=== PATIENT | male | born 1950 | race Caucasian/White ===

== ENCOUNTER 2020-01-05 10:34 | Observation (INO) | payer OTHER, MEDICARE ==
[2020-01-05] MEDS ORDERED: ALBUTEROL NEBULIZED 2.5 MG/3 ML INHALATION STA (10:55)
[2020-01-05] MEDS ORDERED: methylPREDNISolone SOD SUCCI 125 MG/2 ML VIAL IV STA (10:55)
--- NOTE | 2020-01-05 10:57 | ED ---
General Adult HPI - General Chief complaint: Shortness of Breath Stated complaint: SOB Time Seen by Provider: 01/05/20 10:35 Source: patient, RN notes reviewed, old records reviewed Mode of arrival: ambulatory Limitations: no limitations - History of Present Illness Initial comments: This is a 69-year-old male who presents emergency department with past medical history significant for COPD. Patient states for about a week his breathing is gotten considerably worse he's been taking his inhaler but it has not improved. Patient states she's also developed quite a cough. Patient states he feels warm but has not taken his temperature. Patient denies any chest pain or palpitations currently but he states he has had on and off sharp chest pain part icularly with coughing. Patient denies lightheadedness or dizziness. Patient denies any numbness or weakness. Patient denies any abdominal pain. - Related Data Home Medications Medication Instructions Recorded Confirmed Albuterol Inhaler [Ventolin Hfa 1 puff INHALATION RT-Q4H PRN 01/05/20 01/05/20 Inhaler] Albuterol Nebulized [Ventolin 2.5 mg INHALATION RT-Q4H 01/05/20 01/05/20 Nebulized] Budesonide/Formoterol Fumarate 2 puff INHALATION RT-BID 01/05/20 01/05/20 [Symbicort 160-4.5 Mcg Inhaler] Carboxymethylcellulose Sodium 1 drop BOTH EYES QID PRN 01/05/20 01/05/20 [Refresh Tears] Citalopram Hydrobromide [CeleXA] 40 mg PO DAILY 01/05/20 01/05/20 Fluticasone Nasal [place] [Flonase 1 spr EA NOSTRIL BID 01/05/20 01/05/20 Nasal [place]] Ipratropium Nebulized [Atrovent 0.5 mg INHALATION RT-Q4H 01/05/20 01/05/20 Nebulized 0.2 MG/ML] Levothyroxine Sodium [Synthroid] 125 mcg PO DAILY 01/05/20 01/05/20 Lidocaine 5% Patch [Lidoderm] 1 patch TOPICAL DAILY PRN 01/05/20 01/05/20 Loratadine 10 mg PO DAILY 01/05/20 01/05/20 Omeprazole 20 mg PO DAILY 10/02/20 10/02/20 Sildenafil Citrate 100 mg PO DAILY PRN 01/05/20 01/05/20 Simvastatin [Zocor] 40 mg PO HS 01/05/20 01/05/20 Terazosin HCl 10 mg PO BID 01/05/20 01/05/20 busPIRone HCl [Buspar] 5 mg PO TID 01/05/20 01/05/20 hydroCHLOROthiazide [Hydrodiuril] 25 mg PO DAILY 01/05/20 01/05/20 lisinopriL [Zestril] 5 mg PO DAILY 01/05/20 01/05/20 Allergies Allergy/AdvReac Type Severity Reaction Status Date / Time codeine Allergy Unknown Verified 01/05/20 11:48 Iodinated Contrast Media Allergy Unknown Verified 01/05/20 11:48 Penicillins Allergy Unknown Verified 01/05/20 11:48 Sulfa (Sulfonamide Allergy Unknown Verified 01/05/20 11:48 Antibiotics) tetracycline Allergy Unknown Verified 01/05/20 11:48 Review of Systems ROS Statement: Those systems with pertinent positive or pertinent negative responses have been documented in the HPI. ROS Other: All systems not noted in ROS Statement are negative. Past Medical History Past Medical History: Hypertension, Pneumonia History of Any Multi-Drug Resistant Organisms: None Reported Additional Past Surgical History / Comment(s): sinus surgery Past Psychological History: No Psychological Hx Reported Smoking Status: Former smoker Past Alcohol Use History: None Reported Past Drug Use History: Marijuana General Exam - General Exam Comments Initial Comments: GENERAL: Patient is well-developed and well-nourished. Patient is nontoxic and well- hydrated and is in moderate distress. ENT: Neck is soft and supple. No significant lymphadenopathy is noted. Oropharynx is clear. Moist mucous membranes. Neck has full range of motion without eliciting any pain. EYES: The sclera were anicteric and conjunctiva were pink and moist. Extraocular movements were intact and pupils were equal round and reactive to light. Eyelids were unremarkable. PULMONARY: Patient has diffuse wheezing throughout . Patient is tachypneic CARDIOVASCULAR: There is a regular rate and rhythm without any murmurs gallops or rubs. Femoral pulses are equal bilaterally ABDOMEN: Soft and nontender with normal bowel sounds. No palpable organomegaly was noted. There is no palpable pulsatile mass. SKIN: Skin is clear with no lesions or rashes and otherwise unremarkable. NEUROLOGIC: Patient is alert and oriented x3. Cranial nerves II through XII are grossly intact. Motor and sensory are also intact. Normal speech, volume and content. Symmetrical smile. MUSCULOSKELETAL: Normal extremities with adequate strength and full range of motion. No lower extremity swelling or edema. No calf tenderness. LYMPHATICS: No significant lymphadenopathy is noted PSYCHIATRIC: Normal psychiatric evaluation. Limitations: no limitations Course Vital Signs 01/05/20 01/05/20 01/05/20 10:42 11:28 11:44 Temperature 97.7 F Pulse Rate 88 72 75 Respiratory 18 Rate Blood Pressure 127/83 O2 Sat by Pulse 92 L Oximetry 01/05/20 01/05/20 11:53 12:20 Temperature Pulse Rate 80 68 Respiratory 18 Rate Blood Pressure 137/65 O2 Sat by Pulse 97 Oximetry Medical Decision Making - Medical Decision Making EKG shows normal sinus rhythm at 77 bpm WI interval 164 QRS is 90 QT interval 44 QTC is 457. Patient's EKG shows no ST segment elevation or depression. Chest x-ray shows no acute abnormality. Patient received 3 breathing treatments in the emergency department. Patient also received Solu-Medrol emergency department. I went back into the room to reevaluate the patient he was feeling considerably better he was no longer tachypneic and though he continued to have diffuse after wheezing was much improved and there was better air flow at this time. I spoke with Dr. Johnson he agreed to admit the patient admitted the patient I wrote admitting orders to continue the steroid and albuterol the floor. - Lab Data Result diagrams: 01/05/20 11:13 01/05/20 11:13 Lab Results 01/05/20 01/05/20 01/05/20 Range/Units 11:13 11:13 11:13 WBC 8.6 (3.8-10.6) k/uL RBC 4.51 (4.30-5.90) m/uL Hgb 13.9 (13.0-17.5) gm/dL Hct 42.4 (39.0-53.0) % MCV 93.9 (80.0-100.0) fL MCH 30.8 (25.0-35.0) pg MCHC 32.8 (31.0-37.0) g/dL RDW 12.9 (11.5-15.5) % Plt Count 246 (150-450) k/uL Neutrophils % 61 % Lymphocytes % 23 % Monocytes % 8 % Eosinophils % 5 % Basophils % 1 % Neutrophils # 5.3 (1.3-7.7) k/uL Lymphocytes # 2.0 (1.0-4.8) k/uL Monocytes # 0.7 (0-1.0) k/uL Eosinophils # 0.4 (0-0.7) k/uL Basophils # 0.1 (0-0.2) k/uL PT 9.8 (9.0-12.0) sec INR 0.9 (<1.2) APTT 24.1 (22.0-30.0) sec Sodium 139 (137-145) mmol/L Potassium 4.0 (3.5-5.1) mmol/L Chloride 108 H (98-107) mmol/L Carbon Dioxide 23 (22-30) mmol/L Anion Gap 8 mmol/L BUN 23 H (9-20) mg/dL Creatinine 1.11 (0.66-1.25) mg/dL Est GFR (CKD-EPI)AfAm 79 (>60 ml/min/1.73 sqM) Est GFR (CKD-EPI)NonAf 68 (>60 ml/min/1.73 sqM) Glucose 98 (74-99) mg/dL Plasma Lactic Acid Esequiel (0.7-2.0) mmol/L Calcium 9.2 (8.4-10.2) mg/dL Magnesium 2.1 (1.6-2.3) mg/dL Total Bilirubin 0.7 (0.2-1.3) mg/dL AST 27 (17-59) U/L ALT 14 (4-49) U/L Alkaline Phosphatase 50 (38-126) U/L Troponin I (0.000-0.034) ng/mL Total Protein 7.6 (6.3-8.2) g/dL Albumin 4.3 (3.5-5.0) g/dL 01/05/20 01/05/20 Range/Units 11:13 11:13 WBC (3.8-10.6) k/uL RBC (4.30-5.90) m/uL Hgb (13.0-17.5) gm/dL Hct (39.0-53.0) % MCV (80.0-100.0) fL MCH (25.0-35.0) pg MCHC (31.0-37.0) g/dL RDW (11.5-15.5) % Plt Count (150-450) k/uL Neutrophils % % Lymphocytes % % Monocytes % % Eosinophils % % Basophils % % Neutrophils # (1.3-7.7) k/uL Lymphocytes # (1.0-4.8) k/uL Monocytes # (0-1.0) k/uL Eosinophils # (0-0.7) k/uL Basophils # (0-0.2) k/uL PT (9.0-12.0) sec INR (<1.2) APTT (22.0-30.0) sec Sodium (137-145) mmol/L Potassium (3.5-5.1) mmol/L Chloride (98-107) mmol/L Carbon Dioxide (22-30) mmol/L Anion Gap mmol/L BUN (9-20) mg/dL Creatinine (0.66-1.25) mg/dL Est GFR (CKD-EPI)AfAm (>60 ml/min/1.73 sqM) Est GFR (CKD-EPI)NonAf (>60 ml/min/1.73 sqM) Glucose (74-99) mg/dL Plasma Lactic Acid Esequiel 0.8 (0.7-2.0) mmol/L Calcium (8.4-10.2) mg/dL Magnesium (1.6-2.3) mg/dL Total Bilirubin (0.2-1.3) mg/dL AST (17-59) U/L ALT (4-49) U/L Alkaline Phosphatase (38-126) U/L Troponin I <0.012 (0.000-0.034) ng/mL Total Protein (6.3-8.2) g/dL Albumin (3.5-5.0) g/dL Critical Care Time Critical Care Time: Yes Total Critical Care Time: 35 Disposition Clinical Impression: Acute exacerbation of chronic obstructive pulmonary disease Disposition: ADMITTED IP TO THIS HOSP Referrals: [facility],Clinic [Primary Care Provider] - 1-2 days Time of Disposition: 12:50
[2020-01-05 11:40] LABS: Basophils # (A) 0.1 k/uL (0-0.2); Basophils % (A) 1 %; Eosinophils # (A) 0.4 k/uL (0-0.7); Eosinophils % (A) 5 %; HCT 42.4 % (39.0-53.0); HGB 13.9 gm/dL (13.0-17.5); Lymphocytes % (A) 23 %; MCH 30.8 pg (25.0-35.0); MCHC 32.8 g/dL (31.0-37.0); MCV 93.9 fL (80.0-100.0); Mean Platelet Volume 6.9; Monocytes # (A) 0.7 k/uL (0-1.0); Monocytes % (A) 8 %; Neutrophils # (A) 5.3 k/uL (1.3-7.7); Neutrophils % (A) 61 %; Platelet Count 246 k/uL (150-450); RBC 4.51 m/uL (4.30-5.90); RDW 12.9 % (11.5-15.5); WBC 8.6 k/uL (3.8-10.6)
[2020-01-05 11:52] LABS: Albumin 4.3 g/dL (3.5-5.0); Calcium 9.2 mg/dL (8.4-10.2); INR 0.9 (<1.2); Magnesium 2.1 mg/dL (1.6-2.3); Partial Thromboplastin Time 24.1 sec (22.0-30.0); Prothrombin Time 9.8 sec (9.0-12.0); Total Bilirubin 0.7 mg/dL (0.2-1.3); Total Protein 7.6 g/dL (6.3-8.2)
--- NOTE | 2020-01-05 12:26 | XR ---
EXAMINATION TYPE: XR chest 2V DATE OF EXAM: 01/05/2020 COMPARISON: NONE HISTORY: Difficulty breathing, shortness of breath TECHNIQUE: Frontal and lateral views of the chest are obtained. FINDINGS: There are prominent lung volumes with flattening the hemidiaphragms consistent with air tra pping, COPD. There are overlying cardiac leads. There is no focal air space opacity, pleural effusion , or pneumothorax seen. The cardiac silhouette size is within normal limits. The osseous structure s are intact. IMPRESSION: No acute cardiopulmonary process.
[2020-01-05] MEDS ORDERED: ARTIFICIAL TEARS-HYPROMELLOSE DROPS 15 ML BTL BOTH EYES PRN (15:38)
[2020-01-05] MEDS ORDERED: LIDOCAINE 5% PATCH TOPICAL PRN (15:38)
[2020-01-05] MEDS: busPIRone HCl 5 MG TAB PO SCH ×2 (16:22→20:09)
[2020-01-05] MEDS: HEPARIN SODIUM,PORCINE 5,000 UNIT/ML 1 ML VIAL SQ SCH ×2 (16:22→23:53)
[2020-01-05] MEDS: methylPREDNISolone SOD SUCCI 125 MG/2 ML VIAL IV SCH ×2 (17:42→23:53)
[2020-01-05] MEDS: SYMBICORT 160-4.5 MCG INHALER INHALATION SCH (19:46)
[2020-01-05] MEDS: IPRATROPIUM-ALBUTEROL 3 ML NEB INHALATION PRN (19:46)
[2020-01-05] MEDS: DOXAZOSIN 4 MG TAB PO SCH (20:08)
[2020-01-05] MEDS: FLUTICASONE 50MCG/SPRAY NASAL 16GM EA NOSTRIL SCH (20:16)
[2020-01-05] MEDS ORDERED: ATORVASTATIN 20 MG TAB PO SCH (21:00)
--- NOTE | 2020-01-05 21:38 | P.HPIM ---
History of Present Illness H&P Date: 01/05/20 Chief Complaint: THERESA Patient is a 69-year-old male with a known history of hypertension, hypothyroidism, COPD and previous history of smoking quit several years ago and also marijuana use currently not on any home oxygen and depression came to ER with the complaints of shortness of breath which has been getting worse for the past 1 week. Patient has been using his albuterol nebulized inhaler at home which seems to be not improving and presented to ER. Patient was also complaining of cough with mainly mucus sputum production. Patient also did have subjective fevers. No chills. Denied any complaints of chest pain. Denied any headache or dizziness or lightheadedness. No nausea vomiting or abdominal pain or diarrhea. Lab data showed BUN 23 and creatinine 1.11 Troponin x1- Magnesium 2.1 WBC 8.6 and hemoglobin 13.9 and platelets 246 Chest x-ray showed no acute cardiopulmonary process EKG showed normal sinus rhythm. Review of Systems Constitutional: Patient denies any fever or chills . No generalized weakness or weight loss. Abdomen: Patient denied nausea vomiting and diarrhea and abdominal pain. Cardiovascular: Patient denies any chest pain or short of breath no palpitations. Respiratory: Patient does have cough with mucus production and shortness of breath. Neurologic: Patient denied any numbness or tingling headache. Musculoskeletal: Patient denies any complaints of joint swelling or deformity. Skin: Negative Psychiatric: Negative Endocrine: No heat or cold intolerance. No recent weight gain. Genitourinary: No dysuria or hematuria. All other 14 point ROS negative except the above Past Medical History Past Medical History: COPD, Hypertension, Pneumonia, Thyroid Disorder Additional Past Medical History / Comment(s): hypothyroid History of Any Multi-Drug Resistant Organisms: None Reported Past Surgical History: Hernia Repair Additional Past Surgical History / Comment(s): sinus surgery x3 Past Anesthesia/Blood Transfusion Reactions: No Reported Reaction Past Psychological History: No Psychological Hx Reported Smoking Status: Former smoker Past Alcohol Use History: None Reported Past Drug Use History: Marijuana Medications and Allergies Home Medications Medication Instructions Recorded Confirmed Type Albuterol Inhaler [Ventolin Hfa 1 puff INHALATION RT-Q4H PRN 01/05/20 01/05/20 History Inhaler] Albuterol Nebulized [Ventolin 2.5 mg INHALATION RT-Q4H 01/05/20 01/05/20 History Nebulized] Budesonide/Formoterol Fumarate 2 puff INHALATION RT-BID 01/05/20 01/05/20 History [Symbicort 160-4.5 Mcg Inhaler] Carboxymethylcellulose Sodium 1 drop BOTH EYES QID PRN 01/05/20 01/05/20 History [Refresh Tears] Citalopram Hydrobromide [CeleXA] 40 mg PO DAILY 01/05/20 01/05/20 History Fluticasone Nasal [place] [Flonase 1 spr EA NOSTRIL BID 01/05/20 01/05/20 History Nasal [place]] Ipratropium Nebulized [Atrovent 0.5 mg INHALATION RT-Q4H 01/05/20 01/05/20 History Nebulized 0.2 MG/ML] Levothyroxine Sodium [Synthroid] 125 mcg PO DAILY 01/05/20 01/05/20 History Lidocaine 5% Patch [Lidoderm] 1 patch TOPICAL DAILY PRN 01/05/20 01/05/20 History Loratadine 10 mg PO DAILY 01/05/20 01/05/20 History Omeprazole 20 mg PO DAILY 01/05/20 01/05/20 History Sildenafil Citrate 100 mg PO DAILY PRN 01/05/20 01/05/20 History Simvastatin [Zocor] 40 mg PO HS 01/05/20 01/05/20 History Terazosin HCl 10 mg PO BID 01/05/20 01/05/20 History busPIRone HCl [Buspar] 5 mg PO TID 01/05/20 01/05/20 History hydroCHLOROthiazide [Hydrodiuril] 25 mg PO DAILY 01/05/20 01/05/20 History lisinopriL [Zestril] 5 mg PO DAILY 01/05/20 01/05/20 History Allergies Allergy/AdvReac Type Severity Reaction Status Date / Time codeine Allergy Unknown Verified 01/05/20 11:48 Iodinated Contrast Media Allergy Unknown Verified 01/05/20 11:48 Penicillins Allergy Unknown Verified 01/05/20 11:48 Sulfa (Sulfonamide Allergy Unknown Verified 01/05/20 11:48 Antibiotics) tetracycline Allergy Unknown Verified 01/05/20 11:48 Physical Exam Vitals: Vital Signs Temp Pulse Pulse Resp BP BP Pulse Ox 01/05/20 15:00 98.0 F 64 16 140/84 94 L 01/05/20 14:40 75 16 139/75 98 01/05/20 14:24 98.0 F 64 16 140/84 94 L 01/05/20 13:08 66 18 130/80 98 01/05/20 12:20 68 18 137/65 97 01/05/20 11:53 80 01/05/20 11:44 75 01/05/20 11:28 72 01/05/20 10:42 97.7 F 88 18 127/83 92 L Intake and Output 01/05/20 01/05/20 01/05/20 06:59 14:59 22:59 Other: Weight 83.915 kg PHYSICAL EXAMINATION: Patient is lying in the bed comfortably, no acute distress, awake alert and oriented.. HEENT: Normocephalic. Neck is supple. Pupils reactive. Nostrils clear. Oral cavity is moist. Ears reveal no drainage. Neck reveals no JVD, carotid bruits, or thyromegaly. CHEST EXAMINATION: Trachea is central. Symmetrical expansion. Bilateral diffuse wheezing and diminished air entry. Nonlabored breathing. CARDIAC: Normal S1, S2 with no gallops. No murmurs ABDOMEN: Soft. Bowel sounds normal. No organomegaly. No abdominal bruits. Extremities: reveal no edema. No clubbing or cyanosis Neurologically awake, alert, oriented x3 with well-coordinated movements. No focal deficits noted Skin: No rash or skin lesions. Psychiatric: Coperative. Nonsuicidal Musculoskeletal: No joint swelling or deformity. Normal range of motion. Results CBC & Chem 7: 01/05/20 11:13 01/05/20 11:13 Labs: Abnormal Lab Results - Last 24 Hours (Table) 01/05/20 Range/Units 11:13 Chloride 108 H (98-107) mmol/L BUN 23 H (9-20) mg/dL Thrombosis Risk Factor Assmnt - DVT/VTE Prophylaxis DVT/VTE Prophylaxis: Pharmacologic Prophylaxis ordered - Choose All That Apply Each Risk Factor Represents 2 Points: Age 61-74 years Thrombosis Risk Factor Assessment Total Risk Factor Score: 2 Thrombosis Risk Factor Assessment Level: Low Risk Assessment and Plan Assessment: Acute COPD exacerbation Previous history of smoking Hypertension Hypothyroidism Depression Hyperlipidemia History of marijuana use DVT prophylaxis with heparin subcu GI prophylaxis Plan: Patient will be continued on methylprednisolone 60 mg every 6 hourly and duo nebs and also continue with Symbicort. Continue with home medications and follow-up closely. Oxygen therapy as needed and further recommendations based on clinical course. Continue with GI and DVT prophylaxis.
[2020-01-06 03:39] VITALS: RESP 16
[2020-01-06] MEDS: methylPREDNISolone SOD SUCCI 125 MG/2 ML VIAL IV SCH ×2 (05:55→11:57)
[2020-01-06] MEDS ORDERED: LEVOTHYROXINE 125 MCG TAB PO SCH (06:30)
[2020-01-06 07:20] VITALS: BP 128/78; TEMP 97.6
[2020-01-06] MEDS ORDERED: PANTOPRAZOLE 40 MG TABLET PO SCH (07:30)
[2020-01-06] MEDS: HEPARIN SODIUM,PORCINE 5,000 UNIT/ML 1 ML VIAL SQ SCH (07:32)
[2020-01-06] MEDS: FLUTICASONE 50MCG/SPRAY NASAL 16GM EA NOSTRIL SCH (07:32)
[2020-01-06] MEDS: busPIRone HCl 5 MG TAB PO SCH (07:33)
[2020-01-06] MEDS: DOXAZOSIN 4 MG TAB PO SCH (07:33)
[2020-01-06] MEDS: SYMBICORT 160-4.5 MCG INHALER INHALATION SCH (07:57)
[2020-01-06] MEDS: IPRATROPIUM-ALBUTEROL 3 ML NEB INHALATION PRN ×2 (07:57→12:03)
[2020-01-06 08:00] VITALS: BMI 25.0
[2020-01-06] MEDS ORDERED: CITALOPRAM HYDROBROMIDE 20 MG TAB PO SCH (09:00)
[2020-01-06] MEDS ORDERED: hydroCHLOROthiazide 25 MG TAB PO SCH (09:00)
[2020-01-06] MEDS ORDERED: LORATADINE 10 MG TAB PO SCH (09:00)
[2020-01-06] MEDS ORDERED: lisinopriL 5 MG TAB PO SCH (09:00)
[2020-01-06] MEDS ORDERED: AZITHROMYCIN 500 MG TAB PO SCH (11:45)
[2020-01-06] MEDS ORDERED: SODIUM CHLORIDE 0.9% 1,000 ML IV SCH (11:45)
[2020-01-06 12:16] VITALS: PULSE 64
[2020-01-06] MEDS ORDERED: predniSONE 50 MG TAB PO SCH (14:15)
== END 2020-01-06 15:47 | disposition home or self-care (01) ==
LOC: EC 10:34 → 1SOBS 12:51
PROVIDERS: ADMIT Internal Medicine; ATTEND Internal Medicine
DX: J44.1 Chronic obstructive pulmonary disease with (acute) exacerbation (principal); I10 Essential (primary) hypertension; R06.82 Tachypnea, not elsewhere classified; E03.9 Hypothyroidism, unspecified; F32.9 Major depressive disorder, single episode, unspecified; E78.5 Hyperlipidemia, unspecified; Z87.01 Personal history of pneumonia (recurrent); Z87.891 Personal history of nicotine dependence; Z79.899 Other long term (current) drug therapy; Z79.51 Long term (current) use of inhaled steroids; Z79.890 Hormone replacement therapy; Z88.5 Allergy status to narcotic agent; Z88.0 Allergy status to penicillin; Z88.2 Allergy status to sulfonamides; Z88.1 Allergy status to other antibiotic agents; Z91.041 Radiographic dye allergy status
CPT/HCPCS: 96372 ×2; 96376 ×2; 96374; 99291; 36415; 94640 ×4; 94644; 93005; 80053; 83605; 83735; 84484; 85025; 85610; 85730; 87040; 71046; G0378 ×2; J1644 ×2; J2930 ×2; J0696

== ENCOUNTER 2020-11-19 20:31 | Inpatient (IN) | payer OTHER, MEDICARE ==
[2020-11-19] MEDS ORDERED: IPRATROPIUM 0.5 MG/2.5 ML NEBU INHALATION STA (21:20)
[2020-11-19] MEDS ORDERED: ALBUTEROL NEBULIZED 2.5 MG/3 ML INHALATION STA (21:20)
[2020-11-19] MEDS ORDERED: methylPREDNISolone SOD SUCCI 125 MG/2 ML VIAL IV STA (21:20)
--- NOTE | 2020-11-19 21:21 | XR ---
EXAMINATION TYPE: XR chest 2V DATE OF EXAM: 11/19/2020 COMPARISON: January 05, 2020 HISTORY: Difficulty breathing TECHNIQUE: 2 views FINDINGS: There is no heart failure nor confluent pneumonic infiltrate. Costophrenic angles are clear . There are chest leads. Bony thorax is intact. Is pulmonary hyperinflation. IMPRESSION: No active cardiopulmonary disease. COPD. No change.
[2020-11-19 22:37] LABS: Basophils # (A) 0.1 k/uL (0-0.2); Basophils % (A) 1 %; Eosinophils # (A) 0.5 k/uL (0-0.7); Eosinophils % (A) 5 %; HGB 15.7 gm/dL (13.0-17.5); Lymphocytes # (A) 1.8 k/uL (1.0-4.8); Lymphocytes % (A) 21 %; MCH 34.1 pg (25.0-35.0); MCHC 34.9 g/dL (31.0-37.0); MCV 97.7 fL (80.0-100.0); Mean Platelet Volume 6.9; Monocytes # (A) 0.7 k/uL (0-1.0); Monocytes % (A) 8 %; Neutrophils # (A) 5.4 k/uL (1.3-7.7); Neutrophils % (A) 62 %; Platelet Count 256 k/uL (150-450); RDW 13.5 % (11.5-15.5); WBC 8.8 k/uL (3.8-10.6)
[2020-11-19 22:40] LABS: ALT 19 U/L (4-49); AST 34 U/L (17-59); African American GFR (CKD) >90 (>60 ml/min/1.73 sqM); Albumin 4.7 g/dL (3.5-5.0); Alkaline Phosphatase 55 U/L (38-126); Anion Gap 12 mmol/L; Blood Urea Nitrogen 28 mg/dL (9-20); Calcium 9.7 mg/dL (8.4-10.2); Carbon Dioxide 22 mmol/L (22-30); Chloride 103 mmol/L (98-107); Glucose 98 mg/dL (74-99); Magnesium 2.3 mg/dL (1.6-2.3); Non-African American GFR(CKD) 80 (>60 ml/min/1.73 sqM); Potassium 4.3 mmol/L (3.5-5.1); Sodium 137 mmol/L (137-145); Total Bilirubin 0.5 mg/dL (0.2-1.3); Total Protein 8.1 g/dL (6.3-8.2)
[2020-11-19 22:46] LABS: INR 0.9 (<1.2); Partial Thromboplastin Time 23.5 sec (22.0-30.0)
--- NOTE | 2020-11-19 23:52 | ED ---
SOB HPI - General Source: patient Mode of arrival: wheelchair Limitations: physical limitation <Vanessa Conroy - Last Filed: 11/20/20 00:57> <Lakhwinder Mcgee - Last Filed: 11/24/20 16:33> - General Chief Complaint: Shortness of Breath Stated Complaint: SOB, COPD Time Seen by Provider: 11/19/20 20:58 - History of Present Illness Initial Comments: 70 year-old male patient with past history of COPD presents for evaluation of shortness of breath and increased wheezing. States symptoms have been worsening over the last week. Reports clear to yellow sputum production. States he felt feverish but never checked his temperature. Denies any chest pain, nausea, vomiting, or sweats. Denies leg swelling or pain. States he quite smoking in 1984. Did do breathing treatments and used his inhaler at home without relief. States twice today he felt like he was going to pass out from shortness of breath. Patient denies any recent rash, abdominal pain, diarrhea, constipation, back pain, numbness, tingling, dizziness, weakness, hematuria, dysuria, urinary urgency, urinary frequency, headache, visual changes, or any other complaints. (Vanessa Conroy) - Related Data Home Medications Medication Instructions Recorded Confirmed Albuterol Inhaler [Ventolin Hfa 1 puff INHALATION RT-Q4H PRN 01/05/20 11/19/20 Inhaler] Budesonide/Formoterol Fumarate 2 puff INHALATION RT-BID 01/05/20 11/19/20 [Symbicort 160-4.5 Mcg Inhaler] Carboxymethylcellulose Sodium 1 drop BOTH EYES QID PRN 01/05/20 11/19/20 [Refresh Tears] Citalopram Hydrobromide [CeleXA] 40 mg PO DAILY 01/05/20 11/19/20 Fluticasone Nasal [place] [Flonase 1 spr EA NOSTRIL BID 01/05/20 11/19/20 Nasal [place]] Levothyroxine Sodium [Synthroid] 125 mcg PO DAILY 01/05/20 11/19/20 Loratadine 10 mg PO DAILY 01/05/20 11/19/20 Omeprazole 20 mg PO DAILY 01/05/20 11/19/20 Simvastatin [Zocor] 40 mg PO HS 01/05/20 11/19/20 Terazosin HCl 10 mg PO BID 01/05/20 11/19/20 busPIRone HCl [Buspar] 5 mg PO TID 01/05/20 11/19/20 hydroCHLOROthiazide [Hydrodiuril] 25 mg PO DAILY 01/05/20 11/19/20 lisinopriL [Zestril] 5 mg PO DAILY 01/05/20 11/19/20 Terbinafine 1% Cream [LamISIL] 1 applic TOPICAL BID PRN 11/19/20 11/19/20 Previous Rx's Medication Instructions Recorded Cefuroxime Axetil [Ceftin] 500 mg PO BID 5 Days #10 tab 11/22/20 Ipratropium-Albuterol Nebulize 3 ml INHALATION RT-Q4H PRN ml 11/22/20 [Duoneb 0.5 mg-3 mg/3 ml Soln] Ipratropium-Albuterol Nebulize 3 ml INHALATION RT-QID 30 Days 11/22/20 [Duoneb 0.5 mg-3 mg/3 ml Soln] #120 ml predniSONE 10 mg PO DIRECTED #30 tab 11/22/20 Allergies Allergy/AdvReac Type Severity Reaction Status Date / Time codeine Allergy Unknown Verified 11/19/20 22:18 Iodinated Contrast Media Allergy Unknown Verified 11/19/20 22:18 Penicillins Allergy Unknown Verified 11/19/20 22:18 Sulfa (Sulfonamide Allergy Unknown Verified 11/19/20 22:18 Antibiotics) tetracycline Allergy Unknown Verified 11/19/20 22:18 Review of Systems ROS Other: All systems not noted in ROS Statement are negative. <Vanessa Conroy - Last Filed: 11/20/20 00:57> ROS Other: All systems not noted in ROS Statement are negative. <Lakhwinder Mcgee - Last Filed: 11/24/20 16:33> ROS Statement: Those systems with pertinent positive or pertinent negative responses have been documented in the HPI. Past Medical History Past Medical History: COPD, Hypertension, Pneumonia, Thyroid Disorder Additional Past Medical History / Comment(s): hypothyroid History of Any Multi-Drug Resistant Organisms: None Reported Past Surgical History: Hernia Repair Additional Past Surgical History / Comment(s): sinus surgery x3 Past Anesthesia/Blood Transfusion Reactions: No Reported Reaction Past Psychological History: No Psychological Hx Reported Smoking Status: Former smoker Past Alcohol Use History: None Reported Past Drug Use History: Marijuana <Vanessa Conroy M - Last Filed: 11/20/20 00:57> General Exam Limitations: physical limitation General appearance: alert, in no apparent distress, other (Physical well- developed, well-nourished elderly male patient in no acute distress. Vital s igns upon presentation temperature 98.1F, pulse 98, respirations 26, blood pressure 123/81, pulse ox 92% on room air.) ENT exam: Present: normal exam, normal oropharynx, mucous membranes moist Respiratory exam: Present: wheezes (Course x-ray wheezing noted in the posterior lung hou), other (Pursed lip breathing). Absent: respiratory distress, rales, rhonchi, stridor, accessory muscle use Cardiovascular Exam: Present: regular rate, normal rhythm, normal heart sounds. Absent: systolic murmur, diastolic murmur, rubs, gallop, clicks GI/Abdominal exam: Present: soft, normal bowel sounds. Absent: distended, tenderness, guarding, rebound, rigid Neurological exam: Present: alert, oriented X3, CN II-XII intact Psychiatric exam: Present: normal affect, normal mood Skin exam: Present: warm, dry, intact, normal color. Absent: rash <Vanessa Conroy M - Last Filed: 11/20/20 00:57> Course Vital Signs 11/19/20 11/19/20 11/19/20 20:34 21:00 21:06 Temperature 98.1 F Pulse Rate 98 87 Respiratory 26 H 26 H 22 Rate Blood Pressure 123/81 117/81 O2 Sat by Pulse 92 L 94 L Oximetry 11/19/20 11/19/20 11/19/20 22:18 23:02 23:30 Temperature Pulse Rate 77 78 84 Respiratory 20 Rate Blood Pressure 119/74 O2 Sat by Pulse 94 L Oximetry 11/20/20 02:29 Temperature Pulse Rate 73 Respiratory 20 Rate Blood Pressure O2 Sat by Pulse 93 L Oximetry Medical Decision Making - Lab Data Result diagrams: 11/19/20 21:53 11/19/20 21:53 - EKG Data -: EKG Interpreted by Ma - Radiology Data Radiology results: report reviewed, image reviewed <Vanessa Conroy Mirela - Last Filed: 11/20/20 00:57> - Lab Data Result diagrams: 11/22/20 06:05 11/22/20 06:05 <Lakhwinder Mcgee - Last Filed: 11/24/20 16:33> - Medical Decision Making 70-year-old male patient presents the emergency department today for dilation of increased shortness of breath over the last week. Physical examination did reveal coarse expiratory wheezing in the posterior lung hou. Oxygen saturation are 92% on arrival. Patient was given 7.5 mg albuterol breathing treatment with IV steroids. Upon reevaluation and does have oxygen in place at satting between 89 and 90%. He'll be admitted to the hospital for continued steroids and breathing treatment. We will add pulmonology for consultation. He is agreeable to this plan. Case discussed my attending Dr. Mcgee. (Vanessa Conroy) I saw this patient in conjunction with the physician bankruptcy assistant. I performed independent history and physical exam. Agree with case management. (Lakhwinder Mcgee) - Lab Data Lab Results 11/19/20 11/19/20 11/19/20 Range/Units 21:53 21:53 21:53 WBC 8.8 (3.8-10.6) k/uL RBC 4.60 (4.30-5.90) m/uL Hgb 15.7 (13.0-17.5) gm/dL Hct 45.0 (39.0-53.0) % MCV 97.7 (80.0-100.0) fL MCH 34.1 (25.0-35.0) pg MCHC 34.9 (31.0-37.0) g/dL RDW 13.5 (11.5-15.5) % Plt Count 256 (150-450) k/uL MPV 6.9 Immature Gran % (Auto) % Absolute Nucleated RBC (0.00-0.00) X 10*3/uL Neutrophils % 62 % Lymphocytes % 21 % Monocytes % 8 % Eosinophils % 5 % Basophils % 1 % Immature Gran # (0.00-0.04) X 10*3/uL Neutrophils # 5.4 (1.3-7.7) k/uL Lymphocytes # 1.8 (1.0-4.8) k/uL Monocytes # 0.7 (0-1.0) k/uL Eosinophils # 0.5 (0-0.7) k/uL Basophils # 0.1 (0-0.2) k/uL NRBC/100 WBC Diff (0.0-0.0) /100 WBCS PT 10.0 (9.0-12.0) sec INR 0.9 (<1.2) APTT 23.5 (22.0-30.0) sec Sodium 137 (137-145) mmol/L Potassium 4.3 (3.5-5.1) mmol/L Chloride 103 (98-107) mmol/L Carbon Dioxide 22 (22-30) mmol/L Anion Gap 12 mmol/L BUN 28 H (9-20) mg/dL Creatinine 0.97 (0.66-1.25) mg/dL Est GFR (CKD-EPI)AfAm >90 (>60 ml/min/1.73 sqM) Est GFR (CKD-EPI)NonAf 80 (>60 ml/min/1.73 sqM) BUN/Creatinine Ratio (12.00-20.00) Ratio Glucose 98 (74-99) mg/dL Plasma Lactic Acid Esequiel (0.7-2.0) mmol/L Calcium 9.7 (8.4-10.2) mg/dL Magnesium 2.3 (1.6-2.3) mg/dL Total Bilirubin 0.5 (0.2-1.3) mg/dL AST 34 (17-59) U/L ALT 19 (4-49) U/L Alkaline Phosphatase 55 (38-126) U/L Troponin I (0.000-0.034) ng/mL Total Protein 8.1 (6.3-8.2) g/dL Albumin 4.7 (3.5-5.0) g/dL Coronavirus (PCR) (Not Detectd) 11/19/20 11/19/20 11/20/20 Range/Units 21:53 21:53 18:12 WBC (3.8-10.6) k/uL RBC (4.30-5.90) m/uL Hgb (13.0-17.5) gm/dL Hct (39.0-53.0) % MCV (80.0-100.0) fL MCH (25.0-35.0) pg MCHC (31.0-37.0) g/dL RDW (11.5-15.5) % Plt Count (150-450) k/uL MPV Immature Gran % (Auto) % Absolute Nucleated RBC (0.00-0.00) X 10*3/uL Neutrophils % % Lymphocytes % % Monocytes % % Eosinophils % % Basophils % % Immature Gran # (0.00-0.04) X 10*3/uL Neutrophils # (1.3-7.7) k/uL Lymphocytes # (1.0-4.8) k/uL Monocytes # (0-1.0) k/uL Eosinophils # (0-0.7) k/uL Basophils # (0-0.2) k/uL NRBC/100 WBC Diff (0.0-0.0) /100 WBCS PT (9.0-12.0) sec INR (<1.2) APTT (22.0-30.0) sec Sodium (137-145) mmol/L Potassium (3.5-5.1) mmol/L Chloride (98-107) mmol/L Carbon Dioxide (22-30) mmol/L Anion Gap mmol/L BUN (9-20) mg/dL Creatinine (0.66-1.25) mg/dL Est GFR (CKD-EPI)AfAm (>60 ml/min/1.73 sqM) Est GFR (CKD-EPI)NonAf (>60 ml/min/1.73 sqM) BUN/Creatinine Ratio (12.00-20.00) Ratio Glucose (74-99) mg/dL Plasma Lactic Acid Esequiel 1.1 (0.7-2.0) mmol/L Calcium (8.4-10.2) mg/dL Magnesium (1.6-2.3) mg/dL Total Bilirubin (0.2-1.3) mg/dL AST (17-59) U/L ALT (4-49) U/L Alkaline Phosphatase (38-126) U/L Troponin I <0.012 (0.000-0.034) ng/mL Total Protein (6.3-8.2) g/dL Albumin (3.5-5.0) g/dL Coronavirus (PCR) Not Detected (Not Detectd) 11/21/20 11/21/20 Range/Units 05:44 05:44 WBC 14.29 H (3.8-10.6) k/uL RBC 3.92 L (4.30-5.90) m/uL Hgb 12.6 L (13.0-17.5) gm/dL Hct 37.2 L (39.0-53.0) % MCV 94.9 (80.0-100.0) fL MCH 32.1 H (25.0-35.0) pg MCHC 33.9 (31.0-37.0) g/dL RDW 12.6 (11.5-15.5) % Plt Count 231 (150-450) k/uL MPV 9.0 L Immature Gran % (Auto) 1.0 % Absolute Nucleated RBC 0 (0.00-0.00) X 10*3/uL Neutrophils % 87.1 % Lymphocytes % 8.0 % Monocytes % 3.7 % Eosinophils % 0.1 % Basophils % 0.1 % Immature Gran # 0.15 H (0.00-0.04) X 10*3/uL Neutrophils # 12.43 H (1.3-7.7) k/uL Lymphocytes # 1.15 (1.0-4.8) k/uL Monocytes # 0.53 (0-1.0) k/uL Eosinophils # 0.01 L (0-0.7) k/uL Basophils # 0.02 (0-0.2) k/uL NRBC/100 WBC Diff 0 (0.0-0.0) /100 WBCS PT (9.0-12.0) sec INR (<1.2) APTT (22.0-30.0) sec Sodium 137 (137-145) mmol/L Potassium 4.0 (3.5-5.1) mmol/L Chloride 101 (98-107) mmol/L Carbon Dioxide 25.6 (22-30) mmol/L Anion Gap 10.40 mmol/L BUN 31.0 H (9-20) mg/dL Creatinine 1.1 (0.66-1.25) mg/dL Est GFR (CKD-EPI)AfAm 79.0 (>60 ml/min/1.73 sqM) Est GFR (CKD-EPI)NonAf 68.1 (>60 ml/min/1.73 sqM) BUN/Creatinine Ratio 28.18 H (12.00-20.00) Ratio Glucose 136 H (74-99) mg/dL Plasma Lactic Acid Esequiel (0.7-2.0) mmol/L Calcium 9.3 (8.4-10.2) mg/dL Magnesium (1.6-2.3) mg/dL Total Bilirubin (0.2-1.3) mg/dL AST (17-59) U/L ALT (4-49) U/L Alkaline Phosphatase (38-126) U/L Troponin I (0.000-0.034) ng/mL Total Protein (6.3-8.2) g/dL Albumin (3.5-5.0) g/dL Coronavirus (PCR) (Not Detectd) - EKG Data EKG Comments: EKG obtained at 2205 shows normal sinus rhythm with a ventricular 76, NV interval 164, QRS duration 90, QT 406, QTc 456. No evidence of ST elevation or depression. (Vanessa Conroy) - Radiology Data Two-view x-ray of the chest is obtained. Report was reviewed in its entirety. Impression by Dr. Quesada shows no active cardiopulmonary disease. COPD. No change. (Vanessa Conroy) Disposition Decision to Admit Reason: Admit from EC Decision Date: 11/20/20 Decision Time: 00:34 <Vanessa Conroy - Last Filed: 11/20/20 00:57> <Lakhwinder Mcgee - Last Filed: 11/24/20 16:33> Clinical Impression: COPD exacerbation, Hypoxia Disposition: ADMITTED IP TO THIS HOSP Condition: Good
[2020-11-19] MEDS ORDERED: IPRATROPIUM-ALBUTEROL 3 ML NEB INHALATION PRN (23:57)
[2020-11-20] MEDS: methylPREDNISolone SOD SUCCI 125 MG/2 ML VIAL IV SCH ×5 (02:32→23:44)
[2020-11-20] MEDS: IPRATROPIUM-ALBUTEROL 3 ML NEB INHALATION SCH ×4 (07:42→20:04)
--- NOTE | 2020-11-20 12:16 | P.CNPUL ---
History of Present Illness Consult date: 11/20/20 Requesting physician: Joe Larios Reason for consult: dyspnea, COPD Chief complaint: COPD exacerbation History of present illness: This is a very pleasant 70-year-old male patient who follows with the [facility] for his primary care needs. He has a history of hypertension, hypothyroidism, hyperlipidemia, depression. He also has history of chronic obstructive pulmonary disease and is maintained on Symbicort, albuterol HFA, DuoNeb inhalations. No home oxygen. 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 He presented here to the emergency room with complaints of increasing shortness of breath, chest tightness and wheezing over the previous week. Some yellow productive sputum. Some near syncope due to shortness of breath. Chest x-ray did reveal evidence of COPD but no acute pulmonary process. White count 8.8. Hemoglobin 15.7. Sodium 137. Potassium 4.3. Creatinine 0.97. Glucose 98. Troponin negative 1. He's been initiated on IV Solu-Medrol and DuoNeb inhalations. He is seen today in consultation on the regular medical floor. He is currently sitting up in a chair at the bedside and alert in no acute distress. Maintaining good O2 saturations in the 90s on 2 L/m per nasal cannula. Healing a bit better today compared to yesterday. Review of Systems REVIEW OF SYSTEMS: CONSTITUTIONAL: Denies any recent significant weight loss or weight gain. EYES: Denies change in vision. EARS, NOSE, MOUTH, THROAT: Denies headaches, denies sore throat. CARDIOVASCULAR: Denies chest pain, palpitations or syncopal episodes. RESPIRATORY: Positive for shortness of breath, cough, congestion no hemoptysis. GASTROINTESTINAL: Denies change in appetite, denies abdominal pain GENITOURINARY: Denies hematuria, denies infections. MUSKULOSKELETAL: Denies pain, denies swelling. INTEGUMENTARY: Denies rash, denies eczema. NEUROLOGICAL: Denies recent memory loss, no recent seizure activity. PSYCHIATRIC: Denies anxiety, denies depression. HEMATOLOGIC/LYMPHATIC: Denies anemia, denies enlarged lymph nodes. Past Medical History Past Medical History: COPD, Hypertension, Pneumonia, Thyroid Disorder Additional Past Medical History / Comment(s): hypothyroid History of Any Multi-Drug Resistant Organisms: None Reported Past Surgical History: Hernia Repair Additional Past Surgical History / Comment(s): sinus surgery x3 Past Anesthesia/Blood Transfusion Reactions: No Reported Reaction Past Psychological History: No Psychological Hx Reported Smoking Status: Former smoker Past Alcohol Use History: None Reported Past Drug Use History: Marijuana Medications and Allergies Home Medications Medication Instructions Recorded Confirmed Type Albuterol Inhaler [Ventolin Hfa 1 puff INHALATION RT-Q4H PRN 01/05/20 11/19/20 History Inhaler] Albuterol Nebulized [Ventolin 2.5 mg INHALATION RT-Q4H 01/05/20 11/19/20 History Nebulized] Budesonide/Formoterol Fumarate 2 puff INHALATION RT-BID 01/05/20 11/19/20 History [Symbicort 160-4.5 Mcg Inhaler] Carboxymethylcellulose Sodium 1 drop BOTH EYES QID PRN 01/05/20 11/19/20 History [Refresh Tears] Citalopram Hydrobromide [CeleXA] 40 mg PO DAILY 01/05/20 11/19/20 History Fluticasone Nasal [place] [Flonase 1 spr EA NOSTRIL BID 01/05/20 11/19/20 History Nasal [place]] Ipratropium Nebulized [Atrovent 0.5 mg INHALATION RT-Q4H 01/05/20 11/19/20 History Nebulized 0.2 MG/ML] Levothyroxine Sodium [Synthroid] 125 mcg PO DAILY 01/05/20 11/19/20 History Loratadine 10 mg PO DAILY 01/05/20 11/19/20 History Omeprazole 20 mg PO DAILY 01/05/20 11/19/20 History Simvastatin [Zocor] 40 mg PO HS 01/05/20 11/19/20 History Terazosin HCl 10 mg PO BID 01/05/20 11/19/20 History busPIRone HCl [Buspar] 5 mg PO TID 01/05/20 11/19/20 History hydroCHLOROthiazide [Hydrodiuril] 25 mg PO DAILY 01/05/20 11/19/20 History lisinopriL [Zestril] 5 mg PO DAILY 01/05/20 11/19/20 History Terbinafine 1% Cream [LamISIL] 1 applic TOPICAL BID PRN 11/19/20 11/19/20 History Allergies Allergy/AdvReac Type Severity Reaction Status Date / Time codeine Allergy Unknown Verified 11/19/20 22:18 Iodinated Contrast Media Allergy Unknown Verified 11/19/20 22:18 Penicillins Allergy Unknown Verified 11/19/20 22:18 Sulfa (Sulfonamide Allergy Unknown Verified 11/19/20 22:18 Antibiotics) tetracycline Allergy Unknown Verified 11/19/20 22:18 Physical Exam Vitals: Vital Signs Temp Pulse Pulse Resp BP BP Pulse Ox 11/20/20 11:41 88 11/20/20 11:30 88 11/20/20 08:00 94 18 11/20/20 07:54 80 11/20/20 07:42 76 11/20/20 07:00 97.8 F 94 18 117/69 96 11/20/20 03:49 97.9 F 77 16 133/80 90 L 11/20/20 02:29 73 20 93 L 11/19/20 23:30 84 20 119/74 94 L 11/19/20 23:02 78 11/19/20 22:18 77 11/19/20 21:06 87 22 117/81 94 L 11/19/20 21:00 26 H 11/19/20 20:34 98.1 F 98 26 H 123/81 92 L Intake and Output 11/19/20 11/20/20 11/20/20 22:59 06:59 14:59 Output Total 300 Balance -300 Output: Urine 300 Other: Voiding Method Toilet # Voids 1 Weight 90.718 kg 90.718 kg GENERAL EXAM: Alert, very pleasant 70-year-old gentleman, on 2 L nasal cannula, comfortable in no apparent distress. HEAD: Normocephalic. EYES: Normal reaction of pupils, equal size. NOSE: Clear with pink turbinates. THROAT: No erythema or exudates. NECK: No masses, no JVD. CHEST: No chest wall deformity. LUNGS: Equal air entry with bilateral end expiratory wheeze, diminished. CVS: S1 and S2 normal with no audible murmur, regular rhythm. ABDOMEN: No hepatosplenomegaly, normal bowel sounds, no guarding or rigidity. SPINE: No scoliosis or deformity SKIN: No rashes CENTRAL NERVOUS SYSTEM: No focal deficits, tone is normal in all 4 extremities. EXTREMITIES: There is no peripheral edema. No clubbing, no cyanosis. Peripheral pulses are intact. Results - Laboratory Findings CBC and BMP: 11/19/20 21:53 11/19/20 21:53 PT/INR, D-dimer PT 10.0 sec (9.0-12.0) 11/19/20 21:53 INR 0.9 (<1.2) 11/19/20 21:53 Abnormal lab findings: Abnormal Labs 11/19/20 21:53 BUN 28 H - Diagnostic Findings Chest x-ray: image reviewed Assessment and Plan Assessment: 1 Acute exacerbation of chronic obstructive pulmonary disease 2 Acute hypoxic respiratory failure secondary to above 3 Remote history of chronic tobacco dependence 4 History of previous chemical inhalant exposures 5 Hyperlipidemia 6 Hypertension 7 Hypothyroidism 8 History of depression 9 History of marijuana use Plan: The patient was seen and evaluated by Dr. Crews Chest x-ray and labs reviewed Continue IV Solu-Medrol, DuoNeb inhalations Add Symbicort Titrate down the FiO2 as tolerated He would benefit from a follow-up in the office for full pulmonary function testing We will continue to follow and make further recommendations based on his clinical status I, the cosigning physician, performed a history & physical examination of the patient. Lungs sounds with bilateral end expiratory wheeze, diminished Maintaining good O2 saturations in the 90s on 2 L/m per nasal cannula. I d iscussed the assessment and plan of care with my nurse practitioner, Mouna Snyder. I attest to the above consultation as dictated by her.
[2020-11-20] MEDS ORDERED: ARTIFICIAL TEARS-HYPROMELLOSE DROPS 15 ML BTL BOTH EYES PRN (16:34)
[2020-11-20] MEDS: hydroCHLOROthiazide 25 MG TAB PO SCH (16:58)
[2020-11-20] MEDS: CITALOPRAM HYDROBROMIDE 20 MG TAB PO SCH (16:58)
[2020-11-20] MEDS: LEVOTHYROXINE 125 MCG TAB PO SCH (16:59)
--- NOTE | 2020-11-20 19:52 | HP ---
HISTORY AND PHYSICAL DATE OF SERVICE: 11/20/2020 CHIEF COMPLAINT: Shortness of breath. HISTORY OF PRESENT ILLNESS: This 70-year-old gentleman with a past medical history of COPD, hypertension, hyperlipidemia, history of hypothyroidism, history of pneumonia, being followed by Dr. Ervin in the [facility] in the outpatient setting, was complaining of shortness of breath over the past several days. Patient also had clear to yellow sputum and he came to [facility]. The patient was found to have COPD. No evidence of any obvious pneumonia was detected. Pulse ox was found to be 92% on room air. There is no history of any fever, rigors or chills. No history of headache, loss of consciousness, seizures. Patient was started on bronchodilators. PAST MEDICAL HISTORY: History of COPD, hypertension, history of pneumonia, hypothyroidism. MEDICATIONS: Home medications prior to admission include Zestril, HydroDIURIL, BuSpar, Lamisil, terazosin, Zocor, omeprazole, loratadine, Synthroid, Atrovent, Flonase, Celexa and Pulmicort. Doses are reviewed. ALLERGIES: CODEINE, PENICILLIN, SULFA, TETRACYCLINE. FAMILY HISTORY: No history of heart disease or strokes in family. SOCIAL HISTORY: Previous history of smoking. Occasional THC. REVIEW OF SYSTEMS: ENT: Diminished hearing. Diminished vision. CARDIOVASCULAR SYSTEM: As mentioned earlier. RESPIRATORY SYSTEM: As mentioned earlier. GI: No nausea, vomiting. : No dysuria. NERVOUS SYSTEM: No numbness, weakness. ALLERGY/IMMUNOLOGY: No asthma or hay fever. MUSCULOSKELETAL: As mentioned earlier. HEMATOLOGY/ONCOLOGY: No history of anemia. ENDOCRINE: No history of diabetes or hypothyroidism. CONSTITUTIONAL: As mentioned earlier. DERMATOLOGY: Negative. RHEUMATOLOGY: Negative. PSYCHIATRY: As mentioned earlier. PHYSICAL EXAMINATION: Patient alert and oriented x3. Pulse is 87, blood pressure 117/81, respiration 22, temperature 98.1, pulse ox 94% on 2 L. HEENT: Conjunctivae normal. NECK: No jugular venous distention. CARDIOVASCULAR: S1, S2 muffled. RESPIRATION: Breath sounds diminished at the bases. A few scattered rhonchi and crackles. ABDOMEN: Soft, nontender no mass palpable. LEGS: No edema. No swelling. NERVOUS SYSTEM: Higher functions as mentioned earlier. Moves all 4 limbs. No focal motor or sensory deficit. LYMPHATICS: No lymph node palpable in neck, axillae or groin. SKIN: No ulcer, rash, bleeding. JOINTS: No active deforming arthropathy. LABS: CBC within normal limits. Sodium 137, potassium 4.3. ASSESSMENT: 1. Chronic obstructive pulmonary disease, acute exacerbation, with acute purulent tracheobronchitis. 2. Hypertension. 3. History of pneumonia. 4. Hypothyroidism. 5. History of hernia repair. 6. History of nicotine dependence. 7. History of THC. 8. NO CODE, NO CPR, NO VENT. RECOMMENDATIONS AND DISCUSSION: Im this 70-year-old gentleman who presented with multiple complex medical issues, we will monitor the patient closely, continue the current medications, optimize bronchodilator treatment, empiric antibiotics, steroids. Otherwise, prognosis is guarded because of multiple complex medical issues. Further recommendations to follow. Closely follow with Pulmonary. See orders for further details. A copy of this dictation is being forwarded to Dr. Ervin, who is the primary physician. MMTAVIAL / ALEXANDRAN: [id number] / KHLOE
[2020-11-20] MEDS: DOXAZOSIN 4 MG TAB PO SCH (19:59)
[2020-11-20] MEDS: HEPARIN SODIUM,PORCINE/PF 5,000 UNIT/0.5 ML SYRINGE SQ SCH (19:59)
[2020-11-20] MEDS: ATORVASTATIN 20 MG TAB PO SCH (19:59)
[2020-11-20] MEDS: busPIRone HCl 5 MG TAB PO SCH (19:59)
[2020-11-20] MEDS: SYMBICORT 160-4.5 MCG INHALER INHALATION SCH (20:05)
[2020-11-20] MEDS: FLUTICASONE 50MCG/SPRAY NASAL 16GM EA NOSTRIL SCH (20:23)
[2020-11-21] MEDS: methylPREDNISolone SOD SUCCI 125 MG/2 ML VIAL IV SCH ×3 (05:44→17:50)
[2020-11-21] MEDS: LEVOTHYROXINE 125 MCG TAB PO SCH (05:44)
[2020-11-21] MEDS: IPRATROPIUM-ALBUTEROL 3 ML NEB INHALATION SCH ×4 (07:44→20:27)
[2020-11-21] MEDS: SYMBICORT 160-4.5 MCG INHALER INHALATION SCH ×2 (07:45→20:28)
[2020-11-21] MEDS: LORATADINE 10 MG TAB PO SCH (08:15)
[2020-11-21] MEDS: CITALOPRAM HYDROBROMIDE 20 MG TAB PO SCH (08:15)
[2020-11-21] MEDS: PANTOPRAZOLE 40 MG TABLET PO SCH (08:15)
[2020-11-21] MEDS: busPIRone HCl 5 MG TAB PO SCH ×3 (08:15→22:08)
[2020-11-21] MEDS: FLUTICASONE 50MCG/SPRAY NASAL 16GM EA NOSTRIL SCH ×2 (08:16→22:07)
[2020-11-21] MEDS: lisinopriL 5 MG TAB PO SCH (08:16)
[2020-11-21] MEDS: hydroCHLOROthiazide 25 MG TAB PO SCH (08:16)
[2020-11-21] MEDS: DOXAZOSIN 4 MG TAB PO SCH ×2 (08:16→22:08)
[2020-11-21] MEDS: HEPARIN SODIUM,PORCINE/PF 5,000 UNIT/0.5 ML SYRINGE SQ SCH ×2 (08:17→22:08)
[2020-11-21 08:57] LABS: Basophils # (A) 0.02 X 10*3/uL (0.00-0.10); Basophils % (A) 0.1 %; Eosinophils # (A) 0.01 X 10*3/uL (0.04-0.35); Eosinophils % (A) 0.1 %; HCT 37.2 % (39.6-50.0); HGB 12.6 g/dL (13.0-17.0); Lymphocytes # (A) 1.15 X 10*3/uL (0.90-5.00); MCH 32.1 pg (27.0-32.0); MCHC 33.9 g/dL (32.0-37.0); MCV 94.9 fL (80.0-97.0); Monocytes # (A) 0.53 X 10*3/uL (0.20-1.00); Monocytes % (A) 3.7 %; Neutrophils # (A) 12.43 X 10*3/uL (1.80-7.70); Neutrophils % (A) 87.1 %; Platelet Count 231 X 10*3/uL (140-440); RBC 3.92 X 10*6/uL (4.40-5.60); RDW 12.6 % (11.5-14.5); WBC 14.29 X 10*3/uL (4.50-10.00)
[2020-11-21] MEDS ORDERED: NON FORMULARY DRUG (Omeprazole [Omeprazole] 20 MG Capsule.Dr) PO SCH (09:00)
[2020-11-21 09:04] LABS: Anion Gap 10.4 mmol/L (4.00-12.00); BUN/Creat Ratio 28.18 Ratio (12.00-20.00); Calcium 9.3 mg/dL (8.7-10.3); Carbon Dioxide 25.6 mmol/L (21.6-31.8); Non-African American GFR(CKD) 68.1 (60.0-200.0)
--- NOTE | 2020-11-21 15:04 | P.PN ---
Subjective Progress Note Date: 11/21/20 70-year-old male patient admitted for an acute COPD exacerbation. Feeling better. Less bronchus spastic and wheezy compared to yesterday. COVID-19 testing was repeated and the patient came back negative. He is known to have hypertension hyperlipidemia hypothyroidism and history of depression in comb ination with COPD. For now, the patient is on DuoNeb neb regimen to around the clock, IV Solu-Medrol, IV Rocephin. Tolerating his diet. No nausea or vomiting. No diarrhea or abdominal pain. Altered mentation. No chest pain. The white cell count is at 14.2. Rest of the blood work and electrolytes are all within normal limits. There is some mild elevation of the sugar related to steroid use. The patient is currently on 2 L about 2 by nasal cannula. Pulse ox on room air is around 88%. Objective - Vital Signs Vital signs: Vital Signs Temp 97.9 F 11/21/20 14:51 Pulse 88 11/21/20 14:51 Resp 19 11/21/20 14:51 BP 108/63 11/21/20 14:51 Pulse Ox 88 L 11/21/20 14:51 Intake & Output 11/20/20 11/21/20 11/21/20 18:59 06:59 18:59 Intake Total 477 Balance 477 Intake: Oral 477 Other: Voiding Method Toilet Toilet Toilet # Voids 1 2 4 - Exam GENERAL EXAM: Alert, very pleasant 70-year-old gentleman, on 2 L nasal cannula, comfortable in no apparent distress. HEAD: Normocephalic. EYES: Normal reaction of pupils, equal size. NOSE: Clear with pink turbinates. THROAT: No erythema or exudates. NECK: No masses, no JVD. CHEST: No chest wall deformity. LUNGS: Equal air entry with bilateral end expiratory wheeze, diminished. CVS: S1 and S2 normal with no audible murmur, regular rhythm. ABDOMEN: No hepatosplenomegaly, normal bowel sounds, no guarding or rigidity. SPINE: No scoliosis or deformity SKIN: No rashes CENTRAL NERVOUS SYSTEM: No focal deficits, tone is normal in all 4 extremities. EXTREMITIES: There is no peripheral edema. No clubbing, no cyanosis. Peripheral pulses are intact. - Labs CBC & Chem 7: 11/21/20 05:44 11/21/20 05:44 Labs: Abnormal Lab Results - Last 24 Hours (Table) 11/21/20 11/21/20 Range/Units 05:44 05:44 WBC 14.29 H (4.50-10.00) X 10*3/uL RBC 3.92 L (4.40-5.60) X 10*6/uL Hgb 12.6 L (13.0-17.0) g/dL Hct 37.2 L (39.6-50.0) % MCH 32.1 H (27.0-32.0) pg MPV 9.0 L (9.5-12.2) fL Immature Gran # 0.15 H (0.00-0.04) X 10*3/uL Neutrophils # 12.43 H (1.80-7.70) X 10*3/uL Eosinophils # 0.01 L (0.04-0.35) X 10*3/uL BUN 31.0 H (9.0-27.0) mg/dL BUN/Creatinine Ratio 28.18 H (12.00-20.00) Ratio Glucose 136 H (70-110) mg/dL Assessment and Plan Plan: 1 Acute exacerbation of chronic obstructive pulmonary disease, improving 2 Acute hypoxic respiratory failure secondary to above, improving and the patient has a pulse ox of 88% on room air oxygen. 3 Remote history of chronic tobacco dependence 4 History of previous chemical inhalant exposures 5 Hyperlipidemia 6 Hypertension 7 Hypothyroidism 8 History of depression 9 History of marijuana use Plan: Clinically improving. May need another 24 hours and hopefully within the next 24 hours he'll be further improvement in his shortness of breath and oxyge [place]. If not, the patient may need home O2. Continue IV Solu-Medrol, DuoNeb inhalations Continue Symbicort Titrate down the FiO2 as tolerated He would benefit from a follow-up in the office for full pulmonary function testing We will continue to follow and make further recommendations based on his clinical status
[2020-11-21 17:57] LABS: Glucose,Whole Blood 136 mg/dL (75-99)
[2020-11-21] MEDS: INSULIN ASPART (NovoLOG) 100 UNIT/ML VIAL SQ SCH ×2 (18:05→22:11)
--- NOTE | 2020-11-21 19:53 | PN ---
PROGRESS NOTE DATE OF SERVICE: 11/21/2020 This 70-year-old gentleman who was admitted with COPD exacerbation closely monitored. No chest pain. No palpitations. No fever. PHYSICAL EXAMINATION: Alert and oriented x3. Pulse 68, blood pressure 108/60, respirations 18, temperature 97.9, pulse ox 88 percent on room air. HEENT: Conjunctivae normal. Neck: No JVD. Cardiovascular: S1, S2 muffled. Respiratory: Breath sounds diminished at the bases. Bilateral scattered rhonchi and crackles. Abdomen: Soft, nontender. Legs are no edema, no swelling. Nervous system: No focal deficits. LABS: WBC 14.3. Other labs are noted. Covid 19 is negative. ASSESSMENT: 1. Chronic obstructive pulmonary disease exacerbation with acute purulent tracheobronchitis as well as acute hypoxic respiratory failure. 2. Hypertension. 3. Chronic hypoxic respiratory failure. 4. History of pneumonia. 5. Hypothyroidism. 6. History of hernia repair. 7. History of nicotine dependence. 8. History of THC. 9. NO CODE, NO CPR, NO VENT. RECOMMENDATIONS AND DISCUSSION: Continue current medications. Continue with bronchodilators. Continue with empiric antibiotics. Continue the rest of medications. Continue with steroids. I would also recommend IV steroids at this time. Otherwise, closely monitor. Repeat labs and follow closely with Pulmonary. MMODL / IJN: [id number] /
[2020-11-21 21:53] LABS: Glucose,Whole Blood 129 mg/dL (75-99)
[2020-11-21] MEDS: ATORVASTATIN 20 MG TAB PO SCH (22:08)
[2020-11-22] MEDS: methylPREDNISolone SOD SUCCI 125 MG/2 ML VIAL IV SCH ×3 (00:09→11:07)
[2020-11-22] MEDS: LEVOTHYROXINE 125 MCG TAB PO SCH (06:02)
[2020-11-22 07:25] LABS: Glucose,Whole Blood 131 mg/dL (75-99)
[2020-11-22] MEDS: IPRATROPIUM-ALBUTEROL 3 ML NEB INHALATION SCH ×3 (07:33→15:26)
[2020-11-22] MEDS: SYMBICORT 160-4.5 MCG INHALER INHALATION SCH (07:33)
[2020-11-22] MEDS: FLUTICASONE 50MCG/SPRAY NASAL 16GM EA NOSTRIL SCH (08:05)
[2020-11-22] MEDS: busPIRone HCl 5 MG TAB PO SCH (08:05)
[2020-11-22] MEDS: HEPARIN SODIUM,PORCINE/PF 5,000 UNIT/0.5 ML SYRINGE SQ SCH (08:05)
[2020-11-22] MEDS: LORATADINE 10 MG TAB PO SCH (08:06)
[2020-11-22] MEDS: CITALOPRAM HYDROBROMIDE 20 MG TAB PO SCH (08:06)
[2020-11-22] MEDS: hydroCHLOROthiazide 25 MG TAB PO SCH (08:06)
[2020-11-22] MEDS: PANTOPRAZOLE 40 MG TABLET PO SCH (08:06)
[2020-11-22] MEDS: lisinopriL 5 MG TAB PO SCH (08:06)
[2020-11-22] MEDS: DOXAZOSIN 4 MG TAB PO SCH (08:06)
[2020-11-22] MEDS: INSULIN ASPART (NovoLOG) 100 UNIT/ML VIAL SQ SCH ×2 (08:06→11:45)
[2020-11-22 10:25] LABS: African American GFR (CKD) 71.1 (60.0-200.0); Anion Gap 10.9 mmol/L (4.00-12.00); BUN/Creat Ratio 29.17 Ratio (12.00-20.00); Calcium 9.3 mg/dL (8.7-10.3); Carbon Dioxide 26.1 mmol/L (21.6-31.8); Non-African American GFR(CKD) 61.3 (60.0-200.0); Potassium 3.7 mmol/L (3.5-5.5)
[2020-11-22 10:35] LABS: Basophils # (A) 0.02 X 10*3/uL (0.00-0.10); Basophils % (A) 0.1 %; Eosinophils # (A) 0 X 10*3/uL (0.04-0.35); Eosinophils % (A) 0 %; HCT 39.3 % (39.6-50.0); HGB 13.1 g/dL (13.0-17.0); Lymphocytes # (A) 1.38 X 10*3/uL (0.90-5.00); Lymphocytes % (A) 8.5 %; MCH 31.7 pg (27.0-32.0); MCHC 33.3 g/dL (32.0-37.0); MCV 95.2 fL (80.0-97.0); Mean Platelet Volume 9.6 fL (9.5-12.2); Monocytes # (A) 0.82 X 10*3/uL (0.20-1.00); Neutrophils # (A) 13.95 X 10*3/uL (1.80-7.70); Neutrophils % (A) 85.5 %; Platelet Count 261 X 10*3/uL (140-440); RBC 4.13 X 10*6/uL (4.40-5.60); RDW 12.8 % (11.5-14.5); WBC 16.32 X 10*3/uL (4.50-10.00)
[2020-11-22 11:19] LABS: Glucose,Whole Blood 177 mg/dL (75-99)
[2020-11-22 15:07] VITALS: BP 124/66; RESP 18; TEMP 98.4
[2020-11-22 15:38] VITALS: PULSE 84
--- NOTE | 2020-11-25 10:18 | P.DS ---
Providers Date of admission: 11/21/20 15:38 Expected date of discharge: 11/22/20 Attending physician: Joe Larios Consults: 11/20/20 01:04 Consult Physician Routine Consulting Provider: Jose Alberto Crews Consult Reason/Comments: COPD exacerbation Do you want consulting provider notified?: Yes Primary care physician: [facility] Hospital Course: Final diagnosis Chronic obstructive pulmonary disease exacerbation with acute purulent tracheobronchitis as well as acute hypoxic respiratory failure Hypertension Chronic hypoxic respiratory failure history of pneumonia Hypothyroidism History of hernia repair history of nicotine dependence history of THC No code, no CPR, no vent Discharge disposition Patient is being discharged in a stable condition with guarded prognosis to home. Patient will follow-up with Dr. Yuen at the [facility] in the outpatient setting upon discharge. Patient will also follow-up with pulmonary Dr. Crews outpatient for further testing. Patient will continue with oral antibiotics in the form of Ceftin 500 mg twice daily for the next 5 days to complete the course along with a prednisone taper. Patient will require 2 L of oxygen via nasal cannula secondary to his COPD. Total time taken is greater than 35 minutes. Hospital course This is a 70-year-old male who was recently admitted with COPD exacerbation and being closely monitored. Pulmonary following and patient was maintained on IV steroids along with breathing inhalational treatments and slowly improved and will require oxygen at 2 L on discharge secondary to his COPD. Home O2 eval was done and patient oxygen saturation was 86% on room air with exercise and 88% on room air at rest and will require 2 L of oxygen. Case management provided prescription and arranging for oxygen to be delivered to the room. Patient will follow-up outpatient with Dr. Crews for further testing. Patient will continue on oral antibiotics in the form Ceftin 500 mg twice daily for the next 5 days along with a prednisone taper on discharge. Currently no reports of chest pain, worsening shortness of breath, or palpitations. Patient is afebrile. No reports of nausea or vomiting and patient is tolerating diet. Patient will be discharged home today. On exam vital signs are stable. Cardio S1, S2 are muffled. Respiratory system shows diminished breath sounds at the bases with no wheezing or rhonchi noted. Abdomen is soft and nontender. Nervous system shows no focal deficits. Please refer to medication reconciliation sheet for a list of medications. Patient Condition at Discharge: Good Plan - Discharge Summary Discharge Rx Participant: No New Discharge Prescriptions: New Ipratropium-Albuterol Nebulize [Duoneb 0.5 mg-3 mg/3 ml Soln] 3 ml INHALATION RT-Q4H PRN ml PRN Reason: Shortness Of Breath Or Wheezing predniSONE 10 mg PO DIRECTED #30 tab Cefuroxime Axetil [Ceftin] 500 mg PO BID 5 Days #10 tab Ipratropium-Albuterol Nebulize [Duoneb 0.5 mg-3 mg/3 ml Soln] 3 ml INHALATION RT-QID 30 Days #120 ml Continue Levothyroxine Sodium [Synthroid] 125 mcg PO DAILY Terazosin HCl 10 mg PO BID Omeprazole 20 mg PO DAILY busPIRone HCl [Buspar] 5 mg PO TID Citalopram Hydrobromide [CeleXA] 40 mg PO DAILY Simvastatin [Zocor] 40 mg PO HS Carboxymethylcellulose Sodium [Refresh Tears] 1 drop BOTH EYES QID PRN PRN Reason: DRY EYES Budesonide/Formoterol Fumarate [Symbicort 160-4.5 Mcg Inhaler] 2 puff INHALATION RT-BID lisinopriL [Zestril] 5 mg PO DAILY hydroCHLOROthiazide [Hydrodiuril] 25 mg PO DAILY Albuterol Inhaler [Ventolin Hfa Inhaler] 1 puff INHALATION RT-Q4H PRN PRN Reason: Shortness Of Breath Loratadine 10 mg PO DAILY Fluticasone Nasal [place] [Flonase Nasal [place]] 1 spr EA NOSTRIL BID Terbinafine 1% Cream [LamISIL] 1 applic TOPICAL BID PRN PRN Reason: fungal infection Discontinued Ipratropium Nebulized [Atrovent Nebulized 0.2 MG/ML] 0.5 mg INHALATION RT-Q4H Albuterol Nebulized [Ventolin Nebulized] 2.5 mg INHALATION RT-Q4H Discharge Medication List Albuterol Inhaler [Ventolin Hfa Inhaler] 1 puff INHALATION RT-Q4H PRN 01/05/20 [History] Budesonide/Formoterol Fumarate [Symbicort 160-4.5 Mcg Inhaler] 2 puff INHALATION RT-BID 01/05/20 [History] Carboxymethylcellulose Sodium [Refresh Tears] 1 drop BOTH EYES QID PRN 01/05/20 [History] Citalopram Hydrobromide [CeleXA] 40 mg PO DAILY 01/05/20 [History] Fluticasone Nasal [place] [Flonase Nasal [place]] 1 spr EA NOSTRIL BID 01/05/20 [History] Levothyroxine Sodium [Synthroid] 125 mcg PO DAILY 01/05/20 [History] Loratadine 10 mg PO DAILY 01/05/20 [History] Omeprazole 20 mg PO DAILY 01/05/20 [History] Simvastatin [Zocor] 40 mg PO HS 01/05/20 [History] Terazosin HCl 10 mg PO BID 01/05/20 [History] busPIRone HCl [Buspar] 5 mg PO TID 01/05/20 [History] hydroCHLOROthiazide [Hydrodiuril] 25 mg PO DAILY 01/05/20 [History] lisinopriL [Zestril] 5 mg PO DAILY 01/05/20 [History] Terbinafine 1% Cream [LamISIL] 1 applic TOPICAL BID PRN 11/19/20 [History] Cefuroxime Axetil [Ceftin] 500 mg PO BID 5 Days #10 tab 11/22/20 [Rx] Ipratropium-Albuterol Nebulize [Duoneb 0.5 mg-3 mg/3 ml Soln] 3 ml INHALATION RT-Q4H PRN ml 11/22/20 [Rx] Ipratropium-Albuterol Nebulize [Duoneb 0.5 mg-3 mg/3 ml Soln] 3 ml INHALATION RT-QID 30 Days #120 ml 11/22/20 [Rx] predniSONE 10 mg PO DIRECTED #30 tab 11/22/20 [Rx] Follow up Appointment(s)/Referral(s): [facility],Clinic [Primary Care Provider] - 1-2 days Jose Alberto Crews MD [STAFF PHYSICIAN] - 1 Week Ambulatory/Diagnostic Orders: Complete Blood Count w/diff [LAB.AMB] Time Frame: 2 Days, Location: None Selected Patient Instructions/Handouts: COPD (Chronic Obstructive Pulmonary Disease) (DC) Activity/Diet/Wound Care/Special Instructions: Activity Limited until follow-up Follow-up with primary care provider upon discharge Follow-up with pulmonary outpatient Continue with antibiotics until finished Continue with prednisone taper Continue with breathing inhalational treatments Continue heart healthy diet Patient will require oxygen in the outpatient setting of 2 L via nasal cannula secondary to his COPD Patient's home oxygen order and documentation faxed to [facility]. Patient to follow up with [place] physician. Discharge Disposition: HOME SELF-CARE
== END 2020-11-22 15:47 | disposition home or self-care (01) | DRG 190 ==
LOC: EC 20:31 → 6NMEDSUR 11-20 00:37 → OBSVTOIN 11-21 15:38
PROVIDERS: ADMIT Hospitalist; ATTEND Hospitalist
DX: J44.1 Chronic obstructive pulmonary disease with (acute) exacerbation (principal); J96.21 Acute and chronic respiratory failure with hypoxia; Z66 Do not resuscitate; Z20.822 Contact with and (suspected) exposure to COVID-19; E03.9 Hypothyroidism, unspecified; J20.9 Acute bronchitis, unspecified; I10 Essential (primary) hypertension; E78.5 Hyperlipidemia, unspecified; R73.9 Hyperglycemia, unspecified; T38.0X5A Adverse effect of glucocorticoids and synthetic analogues, initial encounter; F32.9 Major depressive disorder, single episode, unspecified; H91.90 Unspecified hearing loss, unspecified ear; H54.7 Unspecified visual loss; Z79.51 Long term (current) use of inhaled steroids; Z79.890 Hormone replacement therapy; Z79.899 Other long term (current) drug therapy; Z77.090 Contact with and (suspected) exposure to asbestos; Z87.01 Personal history of pneumonia (recurrent); Z87.19 Personal history of other diseases of the digestive system; Z98.890 Other specified postprocedural states; Z87.891 Personal history of nicotine dependence; Z88.1 Allergy status to other antibiotic agents; Z88.5 Allergy status to narcotic agent; Z88.0 Allergy status to penicillin; Z88.2 Allergy status to sulfonamides; Z91.041 Radiographic dye allergy status
CPT/HCPCS: 36415; 71046; 80048; 80053; 83605; 83735; 84484; 85025; 85610; 85730; 87635; 93005; 94640; 94760; 96374; 99285

== ENCOUNTER 2021-10-10 10:21 | Inpatient (IN) | payer OTHER, MEDICARE ==
[2021-10-10] MEDS ORDERED: IPRATROPIUM-ALBUTEROL 3 ML NEB INHALATION STA (10:25)
--- NOTE | 2021-10-10 10:28 | ED ---
General Adult HPI - General Stated complaint: THERESA Time Seen by Provider: 10/10/21 10:22 Source: patient, EMS, RN notes reviewed Mode of arrival: EMS Limitations: no limitations - History of Present Illness Initial comments: Patient is a pleasant 71-year-old male presenting to the emergency department with difficulty in breathing. Symptoms have progressed over the past several days. Mild cough. Nonproductive. Patient does have history of similar symptoms previously associated with COPD. Patient states symptoms always get worse when he leans off his prednisone which she recently did. Patient is using his nebulizer up to 10 times daily. Patient had mild improvement with Solu- Medrol and nebulizer by EMS prior to arrival. - Related Data Home Medications Medication Instructions Recorded Confirmed Albuterol Inhaler [Ventolin Hfa 1 puff INHALATION RT-Q4H PRN 01/05/20 10/10/21 Inhaler] Carboxymethylcellulose Sodium 1 drop BOTH EYES QID PRN 01/05/20 10/10/21 [Refresh Tears] Citalopram Hydrobromide [CeleXA] 40 mg PO DAILY 01/05/20 10/10/21 Fluticasone Nasal [place] [Flonase 1 spr EA NOSTRIL BID 01/05/20 10/10/21 Nasal [place]] Levothyroxine Sodium [Synthroid] 125 mcg PO DAILY 01/05/20 10/10/21 Loratadine 10 mg PO DAILY 01/05/20 10/10/21 Omeprazole 20 mg PO DAILY 01/05/20 10/10/21 Simvastatin [Zocor] 40 mg PO HS 01/05/20 10/10/21 Terazosin HCl 10 mg PO BID 01/05/20 10/10/21 busPIRone HCl [Buspar] 5 mg PO TID 01/05/20 10/10/21 hydroCHLOROthiazide [Hydrodiuril] 25 mg PO DAILY 01/05/20 10/10/21 lisinopriL [Zestril] 5 mg PO DAILY 01/05/20 10/10/21 Terbinafine 1% Cream [LamISIL] 1 applic TOPICAL BID PRN 11/19/20 10/10/21 Albuterol Nebulized [Ventolin 2.5 mg INHALATION RT-Q4H PRN 10/10/21 10/10/21 Nebulized] Famotidine [Pepcid] 40 mg PO HS 10/10/21 10/10/21 Fluticasone Propion/Salmeterol 1 puff INHALATION RT-BID 10/10/21 10/10/21 [Advair 250-50 Diskus] Sildenafil Citrate [Viagra] 100 mg PO DIRECTED PRN 10/10/21 10/10/21 Allergies Allergy/AdvReac Type Severity Reaction Status Date / Time codeine Allergy Rash/Hives Verified 10/10/21 12:27 Iodinated Contrast Media Allergy Rash/Hives Verified 10/10/21 12:27 tetracycline Allergy Rash/Hives Verified 10/10/21 12:27 Penicillins AdvReac Dizziness Verified 10/10/21 12:27 Sulfa (Sulfonamide AdvReac tachycardia, Verified 10/10/21 12:27 Antibiotics) diaphoresis Review of Systems ROS Statement: Those systems with pertinent positive or pertinent negative responses have been documented in the HPI. ROS Other: All systems not noted in ROS Statement are negative. Constitutional: Denies: fever Eyes: Denies: eye pain ENT: Denies: ear pain Respiratory: Reports: as per HPI, cough, dyspnea Cardiovascular: Denies: chest pain Endocrine: Reports: fatigue Gastrointestinal: Denies: abdominal pain Genitourinary: Denies: dysuria Musculoskeletal: Denies: back pain Skin: Denies: rash Neurological: Denies: weakness Past Medical History Past Medical History: COPD, Hypertension, Pneumonia, Thyroid Disorder Additional Past Medical History / Comment(s): hypothyroid History of Any Multi-Drug Resistant Organisms: None Reported Past Surgical History: Hernia Repair Additional Past Surgical History / Comment(s): sinus surgery x3 Past Anesthesia/Blood Transfusion Reactions: No Reported Reaction Past Psychological History: No Psychological Hx Reported Smoking Status: Former smoker Past Alcohol Use History: None Reported Past Drug Use History: Marijuana General Exam Limitations: no limitations General appearance: alert Head exam: Present: normocephalic Eye exam: Present: normal appearance Neck exam: Present: normal inspection Respiratory exam: Present: respiratory distress, wheezes, decreased breath sound s Cardiovascular Exam: Present: regular rate, normal rhythm GI/Abdominal exam: Present: soft. Absent: tenderness Extremities exam: Present: normal inspection. Absent: pedal edema, calf tenderness Neurological exam: Present: alert Psychiatric exam: Present: normal affect, normal mood Skin exam: Present: normal color Course Vital Signs 10/10/21 10/10/21 10/10/21 10:27 10:41 11:27 Temperature 98 F Pulse Rate 68 Respiratory 24 Rate Blood Pressure 149/77 O2 Sat by Pulse 99 Oximetry Fraction of 40 40 Inspired Oxygen (FIO2) 10/10/21 12:40 Temperature Pulse Rate 72 Respiratory 18 Rate Blood Pressure 117/73 O2 Sat by Pulse 99 Oximetry Fraction of Inspired Oxygen (FIO2) EKG Findings - EKG Comments: EKG Findings:: Sinus rhythm with 73 rate. CO 174. QRS 15. QT 429. QTC 454. Normal axis. Normal QRS. No acute ST change. Medical Decision Making - Medical Decision Making Patient reevaluated and improved with BiPAP. Patient no longer in respiratory distress. Case discussed with Dr. Flores, who will admit covering [facility]. - Lab Data Result diagrams: 10/10/21 10:28 10/10/21 10:28 Lab Results 10/10/21 10/10/21 10/10/21 Range/Units 10:28 10:28 10:28 WBC 9.4 (3.8-10.6) k/uL RBC 3.93 L (4.30-5.90) m/uL Hgb 12.9 L (13.0-17.5) gm/dL Hct 38.1 L (39.0-53.0) % MCV 96.8 (80.0-100.0) fL MCH 32.9 (25.0-35.0) pg MCHC 34.0 (31.0-37.0) g/dL RDW 12.6 (11.5-15.5) % Plt Count 231 (150-450) k/uL MPV 6.8 Neutrophils % 58 % Lymphocytes % 20 % Monocytes % 9 % Eosinophils % 9 % Basophils % 1 % Neutrophils # 5.5 (1.3-7.7) k/uL Lymphocytes # 1.9 (1.0-4.8) k/uL Monocytes # 0.8 (0-1.0) k/uL Eosinophils # 0.9 H (0-0.7) k/uL Basophils # 0.1 (0-0.2) k/uL PT 10.3 (9.0-12.0) sec INR 0.9 (<1.2) APTT 24.6 (22.0-30.0) sec Sodium 139 (137-145) mmol/L Potassium 3.7 (3.5-5.1) mmol/L Chloride 104 (98-107) mmol/L Carbon Dioxide 27 (22-30) mmol/L Anion Gap 8 mmol/L BUN 19 (9-20) mg/dL Creatinine 0.84 (0.66-1.25) mg/dL Est GFR (CKD-EPI)AfAm >90 (>60 ml/min/1.73 sqM) Est GFR (CKD-EPI)NonAf 89 (>60 ml/min/1.73 sqM) Glucose 92 (74-99) mg/dL Plasma Lactic Acid Esequiel (0.7-2.0) mmol/L Calcium 8.7 (8.4-10.2) mg/dL Magnesium 2.0 (1.6-2.3) mg/dL Total Bilirubin 0.8 (0.2-1.3) mg/dL AST 40 (17-59) U/L ALT 21 (4-49) U/L Alkaline Phosphatase 47 (38-126) U/L Total Protein 7.1 (6.3-8.2) g/dL Albumin 4.2 (3.5-5.0) g/dL Coronavirus (PCR) (Not Detectd) Influenza Type A RNA (Not Detectd) Influenza Type B (PCR) (Not Detectd) 10/10/21 10/10/21 10/10/21 Range/Units 10:28 10:32 10:32 WBC (3.8-10.6) k/uL RBC (4.30-5.90) m/uL Hgb (13.0-17.5) gm/dL Hct (39.0-53.0) % MCV (80.0-100.0) fL MCH (25.0-35.0) pg MCHC (31.0-37.0) g/dL RDW (11.5-15.5) % Plt Count (150-450) k/uL MPV Neutrophils % % Lymphocytes % % Monocytes % % Eosinophils % % Basophils % % Neutrophils # (1.3-7.7) k/uL Lymphocytes # (1.0-4.8) k/uL Monocytes # (0-1.0) k/uL Eosinophils # (0-0.7) k/uL Basophils # (0-0.2) k/uL PT (9.0-12.0) sec INR (<1.2) APTT (22.0-30.0) sec Sodium (137-145) mmol/L Potassium (3.5-5.1) mmol/L Chloride (98-107) mmol/L Carbon Dioxide (22-30) mmol/L Anion Gap mmol/L BUN (9-20) mg/dL Creatinine (0.66-1.25) mg/dL Est GFR (CKD-EPI)AfAm (>60 ml/min/1.73 sqM) Est GFR (CKD-EPI)NonAf (>60 ml/min/1.73 sqM) Glucose (74-99) mg/dL Plasma Lactic Acid Esequiel 1.2 (0.7-2.0) mmol/L Calcium (8.4-10.2) mg/dL Magnesium (1.6-2.3) mg/dL Total Bilirubin (0.2-1.3) mg/dL AST (17-59) U/L ALT (4-49) U/L Alkaline Phosphatase (38-126) U/L Total Protein (6.3-8.2) g/dL Albumin (3.5-5.0) g/dL Coronavirus (PCR) Not Detected (Not Detectd) Influenza Type A RNA Not Detected (Not Detectd) Influenza Type B (PCR) Not Detected (Not Detectd) - Radiology Data Radiology results: image reviewed (Chest x-ray shows COPD changes. No acute findings.) Critical Care Time Critical Care Time: Yes Total Critical Care Time: 32 Disposition Clinical Impression: Acute exacerbation of chronic obstructive pulmonary disease, Acute respiratory failure Disposition: ADMITTED IP TO THIS HOSP Is patient prescribed a controlled substance at d/c from ED?: No Referrals: Heather Maldonado, PAC [Primary Care Provider] - 1-2 days Time of Disposition: 12:48
[2021-10-10 10:39] LABS: Basophils # (A) 0.1 k/uL (0-0.2); Basophils % (A) 1 %; Eosinophils # (A) 0.9 k/uL (0-0.7); Eosinophils % (A) 9 %; HCT 38.1 % (39.0-53.0); HGB 12.9 gm/dL (13.0-17.5); Lymphocytes # (A) 1.9 k/uL (1.0-4.8); Lymphocytes % (A) 20 %; MCH 32.9 pg (25.0-35.0); MCV 96.8 fL (80.0-100.0); Mean Platelet Volume 6.8; Monocytes # (A) 0.8 k/uL (0-1.0); Monocytes % (A) 9 %; Neutrophils # (A) 5.5 k/uL (1.3-7.7); Neutrophils % (A) 58 %; Platelet Count 231 k/uL (150-450); RBC 3.93 m/uL (4.30-5.90); RDW 12.6 % (11.5-15.5); WBC 9.4 k/uL (3.8-10.6)
[2021-10-10 10:53] LABS: INR 0.9 (<1.2); Partial Thromboplastin Time 24.6 sec (22.0-30.0); Prothrombin Time 10.3 sec (9.0-12.0)
[2021-10-10 11:06] LABS: ALT 21 U/L (4-49); AST 40 U/L (17-59); African American GFR (CKD) >90 (>60 ml/min/1.73 sqM); Albumin 4.2 g/dL (3.5-5.0); Alkaline Phosphatase 47 U/L (38-126); Anion Gap 8 mmol/L; Blood Urea Nitrogen 19 mg/dL (9-20); Calcium 8.7 mg/dL (8.4-10.2); Carbon Dioxide 27 mmol/L (22-30); Chloride 104 mmol/L (98-107); Glucose 92 mg/dL (74-99); Non-African American GFR(CKD) 89 (>60 ml/min/1.73 sqM); Potassium 3.7 mmol/L (3.5-5.1); Sodium 139 mmol/L (137-145); Total Bilirubin 0.8 mg/dL (0.2-1.3); Total Protein 7.1 g/dL (6.3-8.2)
--- NOTE | 2021-10-10 11:09 | XR ---
EXAMINATION TYPE: XR chest 1V portable DATE OF EXAM: 10/10/2021 Comparison: 11/19/2020 Clinical History: 71 year-old male shortness of breath, dyspnea Findings: Heart normal size. Aorta and pulmonary vasculature within normal limits. Hyperinflation. Strandy dens ities in the lower lungs. Mild eventration right hemidiaphragm. No romulo consolidation or pleural eff usion. Impression: COPD. Strandy atelectasis in the lower lungs. No definite acute process.
[2021-10-10] MEDS ORDERED: IPRATROPIUM-ALBUTEROL 3 ML NEB INHALATION PRN ×2 (12:48→14:32)
[2021-10-10] MEDS ORDERED: NALOXONE 0.4 MG/ML 1 ML VIAL IV PRN (14:29)
[2021-10-10] MEDS ORDERED: ARTIFICIAL TEARS OINTMENT 3.5 GM TUBE BOTH EYES PRN (14:31)
--- NOTE | 2021-10-10 14:50 | P.HPIM ---
History of Present Illness H&P Date: 10/10/21 Chief Complaint: sob 71-year-old male with hx of COPD on 3L of home O2 at baseline presenting to the emergency department with difficulty in breathing worsening over the past several days. He visited his PCP in August for this, was given prednisone taper which he took, felt better but breathing worsened right after he stopped it. Denied having fevers or chills. No chest pain. Has been having a cough with phlegm production which has been clear. No sick contacts. No n/v/d. He states his breathing has been bad for years now due to COPD. He has been using his nebulizer up to 10 times daily without much relief. Evaluation in the emergency department revealed severe respiratory distress, he was placed on BiPAP. He stayed on for a few hours and then switched back to nasal cannula. Laboratory evaluation was unremarkable. Chest x-ray showed some atelectasis but no infiltrates. EKG showed normal sinus rhythm without acute abnormalities. Review of Systems Complete review of system performed, pertinent positives per HPI, otherwise negative Past Medical History Past Medical History: COPD, Hypertension, Pneumonia, Thyroid Disorder Additional Past Medical History / Comment(s): hypothyroid History of Any Multi-Drug Resistant Organisms: None Reported Past Surgical History: Hernia Repair Additional Past Surgical History / Comment(s): sinus surgery x3 Past Anesthesia/Blood Transfusion Reactions: No Reported Reaction Past Psychological History: No Psychological Hx Reported Smoking Status: Former smoker Past Alcohol Use History: None Reported Past Drug Use History: Marijuana Medications and Allergies Home Medications Medication Instructions Recorded Confirmed Type Albuterol Inhaler [Ventolin Hfa 1 puff INHALATION RT-Q4H PRN 01/05/20 10/10/21 History Inhaler] Carboxymethylcellulose Sodium 1 drop BOTH EYES QID PRN 01/05/20 10/10/21 History [Refresh Tears] Citalopram Hydrobromide [CeleXA] 40 mg PO DAILY 01/05/20 10/10/21 History Fluticasone Nasal [place] [Flonase 1 spr EA NOSTRIL BID 01/05/20 10/10/21 History Nasal [place]] Levothyroxine Sodium [Synthroid] 125 mcg PO DAILY 01/05/20 10/10/21 History Loratadine 10 mg PO DAILY 01/05/20 10/10/21 History Omeprazole 20 mg PO DAILY 01/05/20 10/10/21 History Simvastatin [Zocor] 40 mg PO HS 01/05/20 10/10/21 History Terazosin HCl 10 mg PO BID 01/05/20 10/10/21 History busPIRone HCl [Buspar] 5 mg PO TID 01/05/20 10/10/21 History hydroCHLOROthiazide [Hydrodiuril] 25 mg PO DAILY 01/05/20 10/10/21 History lisinopriL [Zestril] 5 mg PO DAILY 01/05/20 10/10/21 History Terbinafine 1% Cream [LamISIL] 1 applic TOPICAL BID PRN 11/19/20 10/10/21 History Albuterol Nebulized [Ventolin 2.5 mg INHALATION RT-Q4H PRN 10/10/21 10/10/21 History Nebulized] Famotidine [Pepcid] 40 mg PO HS 10/10/21 10/10/21 History Fluticasone Propion/Salmeterol 1 puff INHALATION RT-BID 10/10/21 10/10/21 History [Advair 250-50 Diskus] Sildenafil Citrate [Viagra] 100 mg PO DIRECTED PRN 10/10/21 10/10/21 History Allergies Allergy/AdvReac Type Severity Reaction Status Date / Time codeine Allergy Rash/Hives Verified 10/10/21 12:27 Iodinated Contrast Media Allergy Rash/Hives Verified 10/10/21 12:27 tetracycline Allergy Rash/Hives Verified 10/10/21 12:27 Penicillins AdvReac Dizziness Verified 10/10/21 12:27 Sulfa (Sulfonamide AdvReac tachycardia, Verified 10/10/21 12:27 Antibiotics) diaphoresis Physical Exam Vitals: Vital Signs Temp Pulse Resp BP Pulse Ox FiO2 10/10/21 12:40 72 18 117/73 99 10/10/21 11:27 40 10/10/21 10:41 40 10/10/21 10:27 98 F 68 24 149/77 99 Intake and Output 10/09/21 10/10/21 10/10/21 22:59 06:59 14:59 Other: Weight 88.451 kg Constitutional: No acute distress, conversant, pleasant Eyes:Anicteric sclerae, moist conjunctiva, no lid-lag, PERRLA, ENMT: Oropharynx clear, no erythema, exudates Neck: Supple, FROM, no masses, or JVD, No carotid bruits, No thyromegaly Lungs: bilateral rhonchi and scattered wheezes, Clear to percussion, Normal respiratory effort, no accessory muscle use Cardiovascular: Heart regular in rate and rhythm, No murmurs, gallops, or rubs, No peripheral edema Abdominal: Soft, Nontender, no guarding, rebound or rigidity, Normoactive bowel sounds, No hepatomegaly, No splenomegaly, No palpable mass Skin: Normal temperature, tone, texture, turgor, no induration, No subcutaneous nodules, No rash, lesions, No ulcers Extremities: No digital cyanosis, No clubbing, Pedal pulses intact and symmetrical, Radial pulses intact and symmetrical, No calf tenderness Psychiatric: Alert and oriented to person, place and time, appropriate affect, intact judgement Neuro: Muscles Strength 5/5 in all 4 extremities, Sensation to light touch grossly present throughout, Cranial nerves II-XII grossly intact, no focal sensory deficits Results CBC & Chem 7: 10/10/21 10:28 10/10/21 10:28 Labs: Abnormal Lab Results - Last 24 Hours (Table) 10/10/21 Range/Units 10:28 RBC 3.93 L (4.30-5.90) m/uL Hgb 12.9 L (13.0-17.5) gm/dL Hct 38.1 L (39.0-53.0) % Eosinophils # 0.9 H (0-0.7) k/uL Assessment and Plan Plan: Acute copd exacerbation Acute on chronic hypoxic respiratory failure was requiring bipap in the ER O2 as needed Steroids IV Bronchodilators Abx Check procal Pulm consult Chronic Hypertension Hypothyroidism Depression Stable resume meds DVT prophylaxis Lovenox s/q Admit to inpatient expected length of stay more than 2 midnights.
[2021-10-10] MEDS: IPRATROPIUM-ALBUTEROL 3 ML NEB INHALATION SCH ×4 (15:19→20:53)
--- NOTE | 2021-10-10 15:30 | P.CNPUL ---
History of Present Illness Consult date: 10/10/21 Requesting physician: Baljinder Mena Reason for consult: dyspnea, COPD Chief complaint: Shortness breath, cough, congestion History of present illness: This is a very pleasant 71-year-old female patient who follows at the [facility] clinic for his primary care needs. He has a history of hypothyroidism, sinusitis with previous polypectomy, previous heavy tobacco dependence however quit 1984, oxygen dependent chronic obstructive pulmonary disease. He is oxygen was initiated in January 2021. He is on maintenance inhalers in the form of Advair along with pro-air rescue inhaler. He also has a nebulizer for nebulized treatments at home. The past several days he has had increasing shortness of breath cough and congestion. Some chest tightness and wheezing. He presented here earlier today for the same. He was initially placed on BiPAP 10/5 on 40% FiO2. Currently he is on 4 L nasal cannula. O2 saturations in the 90s. He is afebrile. Hemodynamically stable. Chest x-ray reveals evidence of COPD and some strandy atelectasis in the lung bases. No acute pulmonary process. White count 9.4. Hemoglobin 12.9. Sodium 139. Potassium 3.7. BUN 19. Creatinine 0.84. Spears virus by PCR not detected. Influenza screen negative. He's been initiated on DuoNeb inhalations, Symbicort, IV Solu-Medrol, azithromycin and ceftriaxone. Pro-calcitonin pending. Review of Systems REVIEW OF SYSTEMS: CONSTITUTIONAL: Denies any recent significant weight loss or weight gain. EYES: Denies change in vision. EARS, NOSE, MOUTH, THROAT: Denies headaches, denies sore throat. CARDIOVASCULAR: Denies chest pain, palpitations or syncopal episodes. RESPIRATORY: Positive for shortness of breath, cough, congestion no hemoptysis. GASTROINTESTINAL: Denies change in appetite, denies abdominal pain GENITOURINARY: Denies hematuria, denies infections. MUSKULOSKELETAL: Denies pain, denies swelling. INTEGUMENTARY: Denies rash, denies eczema. NEUROLOGICAL: Denies recent memory loss, no recent seizure activity. PSYCHIATRIC: Denies anxiety, denies depression. HEMATOLOGIC/LYMPHATIC: Denies anemia, denies enlarged lymph nodes. Past Medical History Past Medical History: COPD, Hyperlipidemia, Hypertension, Pneumonia, Respiratory Disorder, Thyroid Disorder Additional Past Medical History / Comment(s): Chronic hypoxic respiratory failure, home oxygen at 3L/[place] ATC, bronchitis, past smoker and alot of chemical exposure with work, hypothyroid. History of Any Multi-Drug Resistant Organisms: None Reported Past Surgical History: Hernia Repair, Tonsillectomy Additional Past Surgical History / Comment(s): 4 hernia surgeries, colonoscopy, sinus surgery x3 Past Anesthesia/Blood Transfusion Reactions: No Reported Reaction Past Psychological History: Anxiety, Depression, PTSD Additional Psychological History / Comment(s): Pt resides alone. He has a private caregiver. He has home oxygen and a nebulizer. Pt is a [place] . Smoking Status: Former smoker Past Alcohol Use History: None Reported Additional Past Alcohol Use History / Comment(s): Pt started smoking in 1965 and quit in 1984. Past Drug Use History: Marijuana Additional Drug Use History / Comment(s): Edibles. - Past Family History Mother Additional Family Medical History / Comment(s): Sinus problems. Father Family Medical History: No Reported History Medications and Allergies Home Medications Medication Instructions Recorded Confirmed Type Albuterol Inhaler [Ventolin Hfa 1 puff INHALATION RT-Q4H PRN 01/05/20 10/10/21 History Inhaler] Carboxymethylcellulose Sodium 1 drop BOTH EYES QID PRN 01/05/20 10/10/21 History [Refresh Tears] Citalopram Hydrobromide [CeleXA] 40 mg PO DAILY 01/05/20 10/10/21 History Fluticasone Nasal [place] [Flonase 1 spr EA NOSTRIL BID 01/05/20 10/10/21 History Nasal [place]] Levothyroxine Sodium [Synthroid] 125 mcg PO DAILY 01/05/20 10/10/21 History Loratadine 10 mg PO DAILY 01/05/20 10/10/21 History Omeprazole 20 mg PO DAILY 01/05/20 10/10/21 History Simvastatin [Zocor] 40 mg PO HS 01/05/20 10/10/21 History Terazosin HCl 10 mg PO BID 01/05/20 10/10/21 History busPIRone HCl [Buspar] 5 mg PO TID 01/05/20 10/10/21 History hydroCHLOROthiazide [Hydrodiuril] 25 mg PO DAILY 01/05/20 10/10/21 History lisinopriL [Zestril] 5 mg PO DAILY 01/05/20 10/10/21 History Terbinafine 1% Cream [LamISIL] 1 applic TOPICAL BID PRN 11/19/20 10/10/21 History Albuterol Nebulized [Ventolin 2.5 mg INHALATION RT-Q4H PRN 10/10/21 10/10/21 History Nebulized] Famotidine [Pepcid] 40 mg PO HS 10/10/21 10/10/21 History Fluticasone Propion/Salmeterol 1 puff INHALATION RT-BID 10/10/21 10/10/21 History [Advair 250-50 Diskus] Sildenafil Citrate [Viagra] 100 mg PO DIRECTED PRN 10/10/21 10/10/21 History Allergies Allergy/AdvReac Type Severity Reaction Status Date / Time codeine Allergy Rash/Hives Verified 10/10/21 12:27 Iodinated Contrast Media Allergy Rash/Hives Verified 10/10/21 12:27 tetracycline Allergy Rash/Hives Verified 10/10/21 12:27 Penicillins AdvReac Dizziness Verified 10/10/21 12:27 Sulfa (Sulfonamide AdvReac tachycardia, Verified 10/10/21 12:27 Antibiotics) diaphoresis Physical Exam Vitals: Vital Signs Temp Pulse Resp BP Pulse Ox FiO2 10/10/21 12:40 72 18 117/73 99 10/10/21 11:27 40 10/10/21 10:41 40 10/10/21 10:27 98 F 68 24 149/77 99 Intake and Output 10/10/21 10/10/21 10/10/21 06:59 14:59 22:59 Other: Weight 88.451 kg GENERAL EXAM: Alert, pleasant 71-year-old gentleman, on 4 L nasal cannula, fairly comfortable in no apparent distress. HEAD: Normocephalic. EYES: Normal reaction of pupils, equal size. NOSE: Clear with pink turbinates. THROAT: No erythema or exudates. NECK: No masses, no JVD. CHEST: No chest wall deformity. LUNGS: Equal air entry with bilateral wheeze, diminished CVS: S1 and S2 normal with no audible murmur, regular rhythm. ABDOMEN: No hepatosplenomegaly, normal bowel sounds, no guarding or rigidity. SPINE: No scoliosis or deformity SKIN: No rashes CENTRAL NERVOUS SYSTEM: No focal deficits, tone is normal in all 4 extremities. EXTREMITIES: There is no peripheral edema. No clubbing, no cyanosis. Peripheral pulses are intact. Results - Laboratory Findings CBC and BMP: 10/10/21 10:28 10/10/21 10:28 PT/INR, D-dimer PT 10.3 sec (9.0-12.0) 10/10/21 10: INR 0.9 (<1.2) 10/10/21 10:28 Abnormal lab findings: Abnormal Labs 10/10/21 10:28 RBC 3.93 L Hgb 12.9 L Hct 38.1 L Eosinophils # 0.9 H - Diagnostic Findings Chest x-ray: image reviewed Assessment and Plan Assessment: 1 Acute exacerbation of chronic obstructive pulmonary disease 2 Acute on chronic hypoxemic respiratory failure secondary to above 3 Former smoker 4 Hypothyroidism 5 Hypertension 6 Gastroesophageal reflux disease 7 Previous history of chemical exposures 8 History of depression 9 History of marijuana use Plan: The patient was seen and evaluated Chest x-ray, labs and medications reviewed Continue Symbicort, DuoNeb's, IV Solu-Medrol Empiric antibiotics for now, pro-calcitonin pending Titrate the FiO2 as tolerated, BiPAP if needed Would benefit from a follow-up in the office with full PFT We will continue to follow and make further recommendations based on his clinical status I have personally seen and examined the patient, performed the documentation and the assessment and plan as written. Number of minutes spent on the visit: 20.
[2021-10-10] MEDS: AZITHROMYCIN 500 MG in SODIUM CHLORIDE 0.9% 250 ML IVPB SCH (15:49)
[2021-10-10] MEDS: methylPREDNISolone SOD SUCCI 125 MG/2 ML VIAL IV SCH ×2 (17:43→23:45)
[2021-10-10] MEDS: busPIRone HCl 5 MG TAB PO SCH ×2 (17:44→20:10)
[2021-10-10] MEDS ORDERED: methylPREDNISolone SOD SUCCI 125 MG/2 ML VIAL IV SCH (18:00)
[2021-10-10] MEDS ORDERED: SYMBICORT 80-4.5 MCG INHALER INHALATION SCH (20:00)
[2021-10-10] MEDS: ATORVASTATIN 20 MG TAB PO SCH (20:10)
[2021-10-10] MEDS: DOXAZOSIN 4 MG TAB PO SCH (20:10)
[2021-10-10] MEDS: FLUTICASONE 50MCG/SPRAY NASAL 16GM EA NOSTRIL SCH (20:10)
[2021-10-10] MEDS: FAMOTIDINE 20 MG TAB PO SCH (20:10)
[2021-10-10] MEDS: SYMBICORT 80-4.5 MCG INHALER INHALATION SCH (20:23)
[2021-10-11] MEDS: methylPREDNISolone SOD SUCCI 125 MG/2 ML VIAL IV SCH ×4 (05:02→23:27)
[2021-10-11 08:12] LABS: Basophils % (A) 0 %; Eosinophils % (A) 0 %; HCT 37.3 % (39.0-53.0); HGB 12.8 gm/dL (13.0-17.5); Lymphocytes # (A) 0.8 k/uL (1.0-4.8); Lymphocytes % (A) 9 %; MCHC 34.2 g/dL (31.0-37.0); MCV 96.4 fL (80.0-100.0); Monocytes # (A) 0.3 k/uL (0-1.0); Monocytes % (A) 3 %; Neutrophils # (A) 8.7 k/uL (1.3-7.7); Neutrophils % (A) 88 %; Platelet Count 255 k/uL (150-450); RBC 3.87 m/uL (4.30-5.90); RDW 12.4 % (11.5-15.5); WBC 9.9 k/uL (3.8-10.6)
[2021-10-11] MEDS: ENOXAPARIN 40 MG/0.4 ML SYRINGE SQ SCH (08:14)
[2021-10-11] MEDS: busPIRone HCl 5 MG TAB PO SCH ×3 (08:15→20:17)
[2021-10-11] MEDS: LORATADINE 10 MG TAB PO SCH (08:15)
[2021-10-11] MEDS: PANTOPRAZOLE 40 MG TABLET PO SCH (08:15)
[2021-10-11] MEDS: CITALOPRAM HYDROBROMIDE 20 MG TAB PO SCH (08:15)
[2021-10-11] MEDS: lisinopriL 5 MG TAB PO SCH (08:15)
[2021-10-11] MEDS: LEVOTHYROXINE 125 MCG TAB PO SCH (08:15)
[2021-10-11] MEDS: DOXAZOSIN 4 MG TAB PO SCH ×2 (08:15→20:16)
[2021-10-11] MEDS: hydroCHLOROthiazide 25 MG TAB PO SCH (08:15)
[2021-10-11 08:36] LABS: ALT 22 U/L (4-49); AST 33 U/L (17-59); African American GFR (CKD) >90 (>60 ml/min/1.73 sqM); Albumin 4.1 g/dL (3.5-5.0); Alkaline Phosphatase 47 U/L (38-126); Anion Gap 12 mmol/L; Blood Urea Nitrogen 19 mg/dL (9-20); Calcium 8.8 mg/dL (8.4-10.2); Carbon Dioxide 22 mmol/L (22-30); Chloride 103 mmol/L (98-107); Glucose 131 mg/dL (74-99); Magnesium 2.1 mg/dL (1.6-2.3); Non-African American GFR(CKD) 89 (>60 ml/min/1.73 sqM); Potassium 3.9 mmol/L (3.5-5.1); Sodium 137 mmol/L (137-145); Total Bilirubin 0.5 mg/dL (0.2-1.3)
[2021-10-11] MEDS: IPRATROPIUM-ALBUTEROL 3 ML NEB INHALATION SCH ×4 (08:38→20:07)
[2021-10-11] MEDS: SYMBICORT 80-4.5 MCG INHALER INHALATION SCH ×2 (08:40→20:07)
[2021-10-11] MEDS ORDERED: ALPRAZolam 0.5 MG TAB PO PRN (08:44)
[2021-10-11] MEDS: FLUTICASONE 50MCG/SPRAY NASAL 16GM EA NOSTRIL SCH ×2 (10:47→20:17)
[2021-10-11] MEDS: AZITHROMYCIN 500 MG in SODIUM CHLORIDE 0.9% 250 ML IVPB SCH (10:53)
--- NOTE | 2021-10-11 11:24 | P.PN ---
Subjective Progress Note Date: 10/11/21 Principal diagnosis: Acute on chronic hypoxic respiratory failure secondary to acute exacerbation of COPD This is a very pleasant 71-year-old female patient who follows at the [facility] for his primary care needs. He has a history of hypothyroidism, sinusitis with previous polypectomy, previous heavy tobacco dependence however quit 1984, oxygen dependent chronic obstructive pulmonary disease. He is oxygen was initiated in January 2021. He is on maintenance inhalers in the form of Advair along with pro-air rescue inhaler. He also has a nebulizer for nebulized treatments at home. The past several days he has had increasing shortness of breath cough and congestion. Some chest tightness and wheezing. He presented here earlier today for the same. He was initially placed on BiPAP 01/07 on 40% FiO2. Currently he is on 4 L nasal cannula. O2 saturations in the 90s. He is afebrile. Hemodynamically stable. Chest x-ray reveals evidence of COPD and some strandy atelectasis in the lung bases. No acute pulmonary process. White count 9.4. Hemoglobin 12.9. Sodium 139. Potassium 3.7. BUN 19. Creatinine 0.84. Spears virus by PCR not detected. Influenza screen negative. He's been initiated on DuoNeb inhalations, Symbicort, IV Solu-Medrol, azithromycin and ceftriaxone. Pro-calcitonin pending. Reevaluated today on 10/11/2021, patient is doing well, slightly better today compared to yesterday, less cough and less wheezing less shortness of breath. O bviously the patient is improving clinically, and his pro-calcitonin level was noted to be normal. WBC count is 9.9 hemoglobin 12.8 electrolytes are normal renal profile is normal Objective - Vital Signs Vital signs: Vital Signs Temp 97.7 F 10/11/21 08:00 Pulse 70 10/11/21 11:12 Resp 20 10/11/21 11:12 BP 111/69 10/11/21 08:00 Pulse Ox 92 L 10/11/21 08:00 FiO2 40 10/10/21 11:27 Intake & Output 10/10/21 10/11/21 10/11/21 18:59 06:59 18:59 Intake Total 240 660 Output Total 1000 Balance 240 -1000 660 Weight 88.451 kg Intake: Oral 240 660 Output: Urine 1000 Other: Voiding Method Urinal Urinal Urinal - Exam Physical Exam: Revealed a 71-year-old white male on oxygen in no distress HEENT:[Neck is supple.] [No neck masses.] [No thyromegaly.] [No JVD.] Chest: [Scattered rhonchi and wheezes noted bilaterally more so on forced expiratory maneuver. Cardiac Exam: [Normal S1 and S2, no S3 gallop, no murmur.] Abdomen: [Soft, nontender, no megaly, no rebound, no guarding, normal bowel sounds.] Extremities: [No clubbing, no edema, no cyanosis.] Neurological Exam: [No focal neurologic deficit.] Alert oriented 3. Psychiatric: Normal mood, affect and normal mental status examination. Skin: No rashes. - Labs CBC & Chem 7: 10/11/21 07:09 10/11/21 07:09 Labs: Abnormal Lab Results - Last 24 Hours (Table) 10/11/21 10/11/21 Range/Units 07:09 07:09 RBC 3.87 L (4.30-5.90) m/uL Hgb 12.8 L (13.0-17.5) gm/dL Hct 37.3 L (39.0-53.0) % Neutrophils # 8.7 H (1.3-7.7) k/uL Lymphocytes # 0.8 L (1.0-4.8) k/uL Glucose 131 H (74-99) mg/dL Assessment and Plan Assessment: Impression: Acute on chronic hypoxic respiratory failure secondary to acute exam patient of COPD Hypothyroidism Benign essential hypertension Former smoker History of depression History of marijuana use Recommendation: Continue bronchodilators including Symbicort and DuoNeb and IV Solu-Medrol Transition to oral antibiotics for tracheobronchitis, his pro-calcitonin level is relatively normal Use BiPAP as needed if necessary Consider discharge planning in the next 24-48 hours. Should have follow-up with me in the office post discharge. Time with Patient: Less than 30
--- NOTE | 2021-10-11 15:21 | P.PN ---
Subjective Progress Note Date: 10/11/21 Principal diagnosis: sob Patient was anxious this morning, he was given some Xanax. He is currently calm. Breathing is feeling better. No pain. No fevers or chills. Objective - Vital Signs Vital signs: Vital Signs Temp 97.8 F 10/11/21 12:45 Pulse 102 H 10/11/21 12:50 Resp 19 10/11/21 12:45 BP 122/63 10/11/21 12:45 Pulse Ox 95 10/11/21 12:45 FiO2 40 10/10/21 11:27 Intake & Output 10/10/21 10/11/21 10/11/21 18:59 06:59 18:59 Intake Total 240 660 Output Total 1000 Balance 240 -1000 660 Weight 88.451 kg Intake: Oral 240 660 Output: Urine 1000 Other: Voiding Method Urinal Urinal Urinal - Exam Constitutional: No acute distress, conversant, pleasant Eyes:Anicteric sclerae, moist conjunctiva, no lid-lag, PERRLA, ENMT: Oropharynx clear, no erythema, exudates Neck: Supple, FROM, no masses, or JVD, No carotid bruits, No thyromegaly Lungs: bilateral rhonchi and scattered wheezes, Clear to percussion, Normal respiratory effort, no accessory muscle use Cardiovascular: Heart regular in rate and rhythm, No murmurs, gallops, or rubs, No peripheral edema Abdominal: Soft, Nontender, no guarding, rebound or rigidity, Normoactive bowel sounds, No hepatomegaly, No splenomegaly, No palpable mass Skin: Normal temperature, tone, texture, turgor, no induration, No subcutaneous nodules, No rash, lesions, No ulcers Extremities: No digital cyanosis, No clubbing, Pedal pulses intact and symmetrical, Radial pulses intact and symmetrical, No calf tenderness Psychiatric: Alert and oriented to person, place and time, appropriate affect, intact judgement Neuro: Muscles Strength 5/5 in all 4 extremities, Sensation to light touch grossly present throughout, Cranial nerves II-XII grossly intact, no focal sensory deficits - Labs CBC & Chem 7: 10/11/21 07:09 10/11/21 07:09 Labs: Abnormal Lab Results - Last 24 Hours (Table) 10/11/21 10/11/21 Range/Units 07:09 07:09 RBC 3.87 L (4.30-5.90) m/uL Hgb 12.8 L (13.0-17.5) gm/dL Hct 37.3 L (39.0-53.0) % Neutrophils # 8.7 H (1.3-7.7) k/uL Lymphocytes # 0.8 L (1.0-4.8) k/uL Glucose 131 H (74-99) mg/dL Assessment and Plan Plan: Acute copd exacerbation Acute on chronic hypoxic respiratory failure was requiring bipap in the ER O2 as needed Steroids IV Bronchodilators Procal negative, no antibiotics indicated. Discontinued. Pulm consulted Chronic Hypertension Hypothyroidism Depression Stable resume meds DVT prophylaxis Lovenox s/q
[2021-10-11] MEDS: ATORVASTATIN 20 MG TAB PO SCH (20:17)
[2021-10-11] MEDS: FAMOTIDINE 20 MG TAB PO SCH (20:17)
[2021-10-12] MEDS: methylPREDNISolone SOD SUCCI 125 MG/2 ML VIAL IV SCH ×2 (06:08→12:30)
[2021-10-12 07:59] VITALS: RESP 18; TEMP 98.1
[2021-10-12] MEDS: PANTOPRAZOLE 40 MG TABLET PO SCH (07:59)
[2021-10-12] MEDS: lisinopriL 5 MG TAB PO SCH (07:59)
[2021-10-12] MEDS: LEVOTHYROXINE 125 MCG TAB PO SCH (07:59)
[2021-10-12] MEDS: busPIRone HCl 5 MG TAB PO SCH (07:59)
[2021-10-12] MEDS: ENOXAPARIN 40 MG/0.4 ML SYRINGE SQ SCH (07:59)
[2021-10-12] MEDS: DOXAZOSIN 4 MG TAB PO SCH (07:59)
[2021-10-12] MEDS: hydroCHLOROthiazide 25 MG TAB PO SCH (07:59)
[2021-10-12] MEDS: CITALOPRAM HYDROBROMIDE 20 MG TAB PO SCH (08:00)
[2021-10-12] MEDS: LORATADINE 10 MG TAB PO SCH (08:04)
[2021-10-12] MEDS: FLUTICASONE 50MCG/SPRAY NASAL 16GM EA NOSTRIL SCH (08:04)
[2021-10-12] MEDS: SYMBICORT 80-4.5 MCG INHALER INHALATION SCH (08:07)
[2021-10-12] MEDS: IPRATROPIUM-ALBUTEROL 3 ML NEB INHALATION SCH ×2 (08:07→11:45)
--- NOTE | 2021-10-12 10:55 | P.DS ---
Providers Date of admission: 10/10/21 12:48 Expected date of discharge: 10/12/21 Attending physician: Baljinder Mena MD Consults: 10/10/21 12:48 Consult Physician Urgent Consulting Provider: Barb Leiva Consult Reason/Comments: copd, bipap Do you want consulting provider notified?: Yes Primary care physician: Heather Dietz [facility] Course: 71-year-old male with hx of COPD on 3L of home O2 at baseline presenting to the emergency department with difficulty in breathing worsening over the past several days. He visited his PCP in August for this, was given prednisone taper which he took, felt better but breathing worsened right after he stopped it. Denied having fevers or chills. No chest pain. Has been having a cough with phlegm production which has been clear. No sick contacts. No n/v/d. He states his breathing has been bad for years now due to COPD. He has been using his nebulizer up to 10 times daily without much relief. Evaluation in the emergency department revealed severe respiratory distress, he was placed on BiPAP. He stayed on for a few hours and then switched back to nasal cannula. Laboratory evaluation was unremarkable. Chest x-ray showed some atelectasis but no infiltrates. EKG showed normal sinus rhythm without acute abnormalities. Patient was admitted for acute exacerbation of COPD. He was treated with steroids, bronchodilators. He was initially started on antibiotics but procalcitonin came back negative so they were discontinued. Patient was evaluated by pulmonary service who concurred with the management. It took him about 48 hours to regain comfortable breathing. He is currently doing well, will be discharged on prednisone until he is seen by pulmonary service in the office. Time for discharge 35 min Plan - Discharge Summary Discharge Rx Participant: No New Discharge Prescriptions: New predniSONE 0 mg PO DIRECTED 20 Days #44 tab Continue Levothyroxine Sodium [Synthroid] 125 mcg PO DAILY Terazosin HCl 10 mg PO BID Omeprazole 20 mg PO DAILY busPIRone HCl [Buspar] 5 mg PO TID Citalopram Hydrobromide [CeleXA] 40 mg PO DAILY Simvastatin [Zocor] 40 mg PO HS Carboxymethylcellulose Sodium [Refresh Tears] 1 drop BOTH EYES QID PRN PRN Reason: DRY EYES lisinopriL [Zestril] 5 mg PO DAILY hydroCHLOROthiazide [Hydrodiuril] 25 mg PO DAILY Albuterol Inhaler [Ventolin Hfa Inhaler] 1 puff INHALATION RT-Q4H PRN PRN Reason: Shortness Of Breath Loratadine 10 mg PO DAILY Fluticasone Nasal [place] [Flonase Nasal [place]] 1 spr EA NOSTRIL BID Famotidine [Pepcid] 40 mg PO HS Terbinafine 1% Cream [LamISIL] 1 applic TOPICAL BID PRN PRN Reason: fungal infection Albuterol Nebulized [Ventolin Nebulized] 2.5 mg INHALATION RT-Q4H PRN PRN Reason: Shortness Of Breath Fluticasone Propion/Salmeterol [Advair 250-50 Diskus] 1 puff INHALATION RT- BID Sildenafil Citrate [Viagra] 100 mg PO DIRECTED PRN PRN Reason: SEXUAL INTERCOURSE Discharge Medication List Albuterol Inhaler [Ventolin Hfa Inhaler] 1 puff INHALATION RT-Q4H PRN 01/05/20 [History] Carboxymethylcellulose Sodium [Refresh Tears] 1 drop BOTH EYES QID PRN 01/05/20 [History] Citalopram Hydrobromide [CeleXA] 40 mg PO DAILY 01/05/20 [History] Fluticasone Nasal [place] [Flonase Nasal [place]] 1 spr EA NOSTRIL BID 01/05/20 [History] Levothyroxine Sodium [Synthroid] 125 mcg PO DAILY 01/05/20 [History] Loratadine 10 mg PO DAILY 01/05/20 [History] Omeprazole 20 mg PO DAILY 01/05/20 [History] Simvastatin [Zocor] 40 mg PO HS 01/05/20 [History] Terazosin HCl 10 mg PO BID 01/05/20 [History] busPIRone HCl [Buspar] 5 mg PO TID 01/05/20 [History] hydroCHLOROthiazide [Hydrodiuril] 25 mg PO DAILY 01/05/20 [History] lisinopriL [Zestril] 5 mg PO DAILY 01/05/20 [History] Terbinafine 1% Cream [LamISIL] 1 applic TOPICAL BID PRN 11/19/20 [History] Albuterol Nebulized [Ventolin Nebulized] 2.5 mg INHALATION RT-Q4H PRN 10/10/21 [History] Famotidine [Pepcid] 40 mg PO HS 10/10/21 [History] Fluticasone Propion/Salmeterol [Advair 250-50 Diskus] 1 puff INHALATION RT-BID 10/10/21 [History] Sildenafil Citrate [Viagra] 100 mg PO DIRECTED PRN 10/10/21 [History] predniSONE 0 mg PO DIRECTED 20 Days #44 tab 10/12/21 [Rx] Follow up Appointment(s)/Referral(s): Barb Leiva MD [STAFF PHYSICIAN] - 1 Week Heather Maldonado PAC [Primary Care Provider] - 1-2 days
[2021-10-12 12:30] VITALS: BP 122/52; PULSE 82
--- NOTE | 2021-10-12 13:06 | P.PN ---
Subjective Progress Note Date: 10/12/21 Principal diagnosis: Acute on chronic hypoxic respiratory failure secondary to acute exacerbation of COPD This is a very pleasant 71-year-old female patient who follows at the [facility] for his primary care needs. He has a history of hypothyroidism, sinusitis with previous polypectomy, previous heavy tobacco dependence however quit 1984, oxygen dependent chronic obstructive pulmonary disease. He is oxygen was initiated in January 2021. He is on maintenance inhalers in the form of Advair along with pro-air rescue inhaler. He also has a nebulizer for nebulized treatments at home. The past several days he has had increasing shortness of breath cough and congestion. Some chest tightness and wheezing. He presented here earlier today for the same. He was initially placed on BiPAP 01/07 on 40% FiO2. Currently he is on 4 L nasal cannula. O2 saturations in the 90s. He is afebrile. Hemodynamically stable. Chest x-ray reveals evidence of COPD and some strandy atelectasis in the lung bases. No acute pulmonary process. White count 9.4. Hemoglobin 12.9. Sodium 139. Potassium 3.7. BUN 19. Creatinine 0.84. Spears virus by PCR not detected. Influenza screen negative. He's been initiated on DuoNeb inhalations, Symbicort, IV Solu-Medrol, azithromycin and ceftriaxone. Pro-calcitonin pending. Reevaluated today on 10/11/2021, patient is doing well, slightly better today compared to yesterday, less cough and less wheezing less shortness of breath. O bviously the patient is improving clinically, and his pro-calcitonin level was noted to be normal. WBC count is 9.9 hemoglobin 12.8 electrolytes are normal renal profile is normal Reevaluated today patient seems to be doing much better today, very comfortable, in no distress, patient is asking to be discharged home today. Hence we'll clear the patient to be discharged home he is to resume his bronchodilators including DuoNeb, he is also on WIXELA INHUB, and I prefer that the patient starts on prednisone 40 mg tapered over the next 2-3 weeks and follow-up with me in 2 weeks in the office. Objective - Vital Signs Vital signs: Vital Signs Temp 98.1 F 10/12/21 07:56 Pulse 82 10/12/21 12:28 Resp 18 10/12/21 12:28 BP 122/52 10/12/21 12:28 Pulse Ox 93 L 10/12/21 12:28 FiO2 40 10/10/21 11:27 Intake & Output 10/11/21 10/12/21 10/12/21 18:59 06:59 18:59 Intake Total 1200 540 Output Total 675 780 600 Balance 525 -780 -60 Intake: Oral 1200 540 Output: Urine 675 780 600 Other: Voiding Method Urinal Urinal Urinal # Voids 400 - Exam Physical Exam: Revealed a 71-year-old white male on oxygen in no distress, on 2 L nasal cannula HEENT:[Neck is supple.] [No neck masses.] [No thyromegaly.] [No JVD.] Chest: [Minimal wheezing on forced expiratory maneuver only. Cardiac Exam: [Normal S1 and S2, no S3 gallop, no murmur.] Abdomen: [Soft, nontender, no megaly, no rebound, no guarding, normal bowel sounds.] Extremities: [No clubbing, no edema, no cyanosis.] Neurological Exam: [No focal neurologic deficit.] Alert oriented 3. Psychiatric: Normal mood, affect and normal mental status examination. Skin: No rashes. - Labs CBC & Chem 7: 10/11/21 07:09 10/11/21 07:09 Labs: Microbiology - Last 24 Hours (Table) 10/10/21 15:45 Blood Culture - Preliminary Blood No Growth after 24 hours 10/10/21 15:30 Blood Culture - Preliminary Blood No Growth after 24 hours Assessment and Plan Assessment: Impression: Acute on chronic hypoxic respiratory failure secondary to acute exam patient of COPD Hypothyroidism Benign essential hypertension Former smoker History of depression History of marijuana use Recommendation: Agree with discharge planning today. Prednisone 40 mg tapered over the next 2 weeks Continue DuoNeb at home Continue oxygen at home Continue WIXELA INHUB at home Should have follow-up with me in the office post discharge. Time with Patient: Less than 30
== END 2021-10-12 13:29 | disposition home or self-care (01) | DRG 190 ==
LOC: EC 10:21 → 4SSUR 12:48 → 3SCARD 13:21
PROVIDERS: ADMIT Internal Medicine; ATTEND Internal Medicine
PROC: 5A09357 Assistance with Respiratory Ventilation, Less than 24 Consecutive Hours, Continuous Positive Airway Pressure (ICD-10-PCS; principal; 2021-10-10)
DX: J44.1 Chronic obstructive pulmonary disease with (acute) exacerbation (principal); J96.21 Acute and chronic respiratory failure with hypoxia; J98.11 Atelectasis; K21.9 Gastro-esophageal reflux disease without esophagitis; Z77.098 Contact with and (suspected) exposure to other hazardous, chiefly nonmedicinal, chemicals; I10 Essential (primary) hypertension; F43.10 Post-traumatic stress disorder, unspecified; E03.9 Hypothyroidism, unspecified; E78.5 Hyperlipidemia, unspecified; T75.89XS Other specified effects of external causes, sequela; F32.A Depression, unspecified; Z99.81 Dependence on supplemental oxygen; Z20.822 Contact with and (suspected) exposure to COVID-19; Z79.890 Hormone replacement therapy; Z79.899 Other long term (current) drug therapy; Z87.891 Personal history of nicotine dependence; Z87.01 Personal history of pneumonia (recurrent); Z60.2 Problems related to living alone; Z88.5 Allergy status to narcotic agent; Z88.0 Allergy status to penicillin; Z88.1 Allergy status to other antibiotic agents; Z91.041 Radiographic dye allergy status
CPT/HCPCS: 36415; 71045; 80053; 83605; 83735; 84145; 85025; 85610; 85730; 87040; 87502; 87635; 93005; 94640; 94660; 94760; 96374; 99291

== ENCOUNTER 2023-03-30 14:10 | Emergency (ER) | payer OTHER, MEDICARE ==
[2023-03-30 15:01] VITALS: BP 128/79; PULSE 79; RESP 18; TEMP 97.6
--- NOTE | 2023-03-30 15:21 | ED ---
SOB HPI - General Chief Complaint: Shortness of Breath Stated Complaint: THERESA Time Seen by Provider: 03/30/23 15:20 Source: patient, RN notes reviewed Mode of arrival: EMS - History of Present Illness Initial Comments: Patient is a 73-year-old male presented ER chief of shortness of breath. Patient denies any fevers, chills, night sweats. Patient denies any chest pain. - Related Data Home Medications Medication Instructions Recorded Confirmed Albuterol Inhaler [Ventolin Hfa 1 puff INHALATION RT-Q4H PRN 01/05/20 10/10/21 Inhaler] Carboxymethylcellulose Sodium 1 drop BOTH EYES QID PRN 01/05/20 10/10/21 [Refresh Tears] Citalopram Hydrobromide [CeleXA] 40 mg PO DAILY 01/05/20 10/10/21 Fluticasone Nasal [place] [Flonase 1 spr EA NOSTRIL BID 01/05/20 10/10/21 Nasal [place]] Levothyroxine Sodium [Synthroid] 125 mcg PO DAILY 01/05/20 10/10/21 Loratadine 10 mg PO DAILY 01/05/20 10/10/21 Omeprazole 20 mg PO DAILY 01/05/20 10/10/21 Simvastatin [Zocor] 40 mg PO HS 01/05/20 10/10/21 Terazosin HCl 10 mg PO BID 01/05/20 10/10/21 busPIRone HCl [Buspar] 5 mg PO TID 01/05/20 10/10/21 hydroCHLOROthiazide [Hydrodiuril] 25 mg PO DAILY 01/05/20 10/10/21 lisinopriL [Zestril] 5 mg PO DAILY 01/05/20 10/10/21 Terbinafine 1% Cream [LamISIL] 1 applic TOPICAL BID PRN 11/19/20 10/10/21 Albuterol Nebulized [Ventolin 2.5 mg INHALATION RT-Q4H PRN 10/10/21 10/10/21 Nebulized] Famotidine [Pepcid] 40 mg PO HS 10/10/21 10/10/21 Fluticasone Propion/Salmeterol 1 puff INHALATION RT-BID 10/10/21 10/10/21 [Advair 250-50 Diskus] Sildenafil Citrate [Viagra] 100 mg PO DIRECTED PRN 10/10/21 10/10/21 Previous Rx's Medication Instructions Recorded predniSONE 0 mg PO DIRECTED 20 Days #44 tab 10/12/21 Allergies Allergy/AdvReac Type Severity Reaction Status Date / Time codeine Allergy Rash/Hives Verified 03/30/23 14:53 Iodinated Contrast Media Allergy Rash/Hives Verified 03/30/23 14:53 tetracycline Allergy Rash/Hives Verified 03/30/23 14:53 Penicillins AdvReac Dizziness Verified 03/30/23 14:53 Sulfa (Sulfonamide AdvReac tachycardia, Verified 03/30/23 14:53 Antibiotics) diaphoresis Review of Systems ROS Statement: Those systems with pertinent positive or pertinent negative responses have been documented in the HPI. ROS Other: All systems not noted in ROS Statement are negative. Past Medical History Past Medical History: COPD, Hyperlipidemia, Hypertension, Pneumonia, Respiratory Disorder, Thyroid Disorder Additional Past Medical History / Comment(s): Chronic hypoxic respiratory failure, home oxygen at 3L/NC ATC, bronchitis, past smoker and alot of chemical exposure with work, hypothyroid. History of Any Multi-Drug Resistant Organisms: None Reported Past Surgical History: Hernia Repair, Tonsillectomy Additional Past Surgical History / Comment(s): 4 hernia surgeries, colonoscopy, sinus surgery x3 Past Anesthesia/Blood Transfusion Reactions: No Reported Reaction Past Psychological History: Anxiety, Depression, PTSD Smoking Status: Former smoker Past Alcohol Use History: None Reported Past Drug Use History: Marijuana - Past Family History Mother Additional Family Medical History / Comment(s): Sinus problems. Father Family Medical History: No Reported History General Exam - General Exam Comments Initial Comments: Visual Physical Exam Vital signs reviewed General: Well-appearing, nontoxic, no acute distress. Head: Normocephalic, atraumatic Eyes: PERRLA, EOMI ENT: Airway patent Chest: Nonlabored breathing Skin: No visual rash, normal skin tone Neuro: Alert and oriented 3 Musculoskeletal: No gross abnormalities Course Vital Signs 03/30/23 14:51 Temperature 97.6 F Pulse Rate 79 Respiratory 18 Rate Blood Pressure 128/79 O2 Sat by Pulse 91 L Oximetry Medical Decision Making - Medical Decision Making I performed the quick note portion of the exam. Electronically signed by Arely Morrow PA-C - Lab Data Lab Results 12/26/23 Range/Units 14:57 Influenza Type A (PCR) Not Detected (Not Detectd) Influenza Type B (PCR) Not Detected (Not Detectd) RSV (PCR) Not Detected (Not Detectd) SARS-CoV-2 (PCR) Not Detected (Not Detectd) Disposition Clinical Impression: Left against medical advice Disposition: LEFT AGAINST MEDICAL ADVICE Condition: Undetermined Referrals: [facility],Clinic [Primary Care Provider] - 1-2 days Time of Disposition: 14:37
== END 2023-03-30 15:55 | disposition left against medical advice (07) ==
LOC: EC 14:10
DX: Z53.29 Procedure and treatment not carried out because of patient's decision for other reasons (principal); J44.9 Chronic obstructive pulmonary disease, unspecified; E78.5 Hyperlipidemia, unspecified; I10 Essential (primary) hypertension; E03.9 Hypothyroidism, unspecified; F41.9 Anxiety disorder, unspecified; F32.A Depression, unspecified; F12.90 Cannabis use, unspecified, uncomplicated; Z87.891 Personal history of nicotine dependence; Z79.890 Hormone replacement therapy; Z79.51 Long term (current) use of inhaled steroids; Z79.899 Other long term (current) drug therapy; Z88.5 Allergy status to narcotic agent; Z91.041 Radiographic dye allergy status; Z88.0 Allergy status to penicillin; Z88.2 Allergy status to sulfonamides; Z88.8 Allergy status to other drugs, medicaments and biological substances; Z88.1 Allergy status to other antibiotic agents; Z20.822 Contact with and (suspected) exposure to COVID-19
CPT/HCPCS: 87636; 99285